=== PATIENT | female | born 1945 | race Caucasian/White ===

== ENCOUNTER 2017-09-02 11:22 | Outpatient (CLI) | payer MEDICARE, OTHER ==
--- NOTE | 2017-09-02 13:05 | XRAY Preliminary Report ---
Exam: XR CHEST 2 VIEW PA/LAT IMPRESSION: Stable chest. No radiographic evidence for pneumonia, CHF or other demonstrated cause for the patient's symptoms. [facility] SITE ID: [id number]
--- NOTE | 2017-09-02 13:07 | XRAY Report ---
EXAM: CHEST RADIOGRAPHY, 2 VIEWS EXAM DATE: 09/02/2017 12:12 PM. CLINICAL HISTORY: 72-year-old female with pneumonia. COMPARISON: AP portable study 11/11/2013. TECHNIQUE: Upright PA and lateral views. FINDINGS: Lungs/Pleura: No focal opacities evident. No pleural effusion. No pneumothorax. Normal volumes. Mediastinum: Heart and mediastinal contours are unremarkable. No pulmonary vascular congestion or tramaine nopathy. Other: Trachea is midline. Osseous structures show no acute process. Mild dextroconvex curve lower th oracic spine with mild levoconvex curve lower thoracic and upper lumbar spine. Right upper quadrant surgical clips consistent with cholecystectomy. IMPRESSION: Stable chest. No radiographic evidence for pneumonia, CHF or other demonstrated cause for the patient's symptoms. [facility] Referring Provider Line: [phone] SITE ID: [id number]
== END 2017-09-02 11:23 | disposition home or self-care (01) ==
LOC: DI 11:22
PROVIDERS: ATTEND Specialist
DX: J18.9 Pneumonia, unspecified organism (principal)
CPT/HCPCS: 71020

== ENCOUNTER 2017-09-03 21:19 | Emergency (ER) | payer MEDICARE, OTHER ==
[2017-09-03] MEDS ORDERED: IPRATROPIUM/ALBUTEROL 3 ML NEB INH STA (21:52)
[2017-09-03] MEDS ORDERED: IPRATROPIUM/ALBUTEROL 3 ML NEB INH ONE (22:08)
[2017-09-03 22:09] LABS: BASOPHILS % (AUTO) 0.7 %; HGB - HEMOGLOBIN 12.9 g/dL (12.0-16.0); MEAN PLATELET VOLUME 7.9 fL (7.9-10.8)
[2017-09-03 22:12] LABS: EOSINOPHILS % (AUTO) 11.3 %; HCT - HEMATOCRIT 38.3 % (37.0-47.0); LYMPHOCYTES % (AUTO) 31.6 %; MEAN CORPUSCULAR HEMOGLOBIN 30.6 pg (27.0-31.0); MEAN CORPUSCULAR HGB CONC 33.7 g/dL (32.0-36.0); MEAN CORPUSCULAR VOLUME 91.1 fL (81.0-99.0); MONOCYTES % (AUTO) 7.8 %; NEUTROPHILS % (AUTO) 48.6 %; RED CELL DISTRIBUTION WIDTH 13.6 % (12.0-15.0); UNCORRECTED WHITE BLOOD COUNT 10.3 x10^3/uL; WHITE BLOOD COUNT 10.3 x10^3/uL (4.8-10.8)
[2017-09-03 22:23] LABS: ALBUMIN/GLOBULIN RATIO 1.4 (1.0-2.2); BILIRUBIN,TOTAL 0.4 mg/dL (0.2-1.0); CALCIUM 9.7 mg/dL (8.5-10.3); CREATININE 0.8 mg/dL (0.4-1.0); POTASSIUM 3.7 mmol/L (3.5-5.0); TOTAL PROTEIN 7.4 g/dL (6.7-8.2)
[2017-09-03 22:39] LABS: BAND NEUTROPHILS % (MANUAL) 1 %; EOSINOPHILS % (MANUAL) 10 %; LYMPHOCYTES % (MANUAL) 41 %; NEUTROPHILS % (MANUAL) 46 %; NP AUTO DIFFERENTIAL? YES; NP MAN DIFFERENTIAL? NO; PLATELET ESTIMATE, MANUAL NORMAL (130-450,000) (NORMAL); PLATELET MORPHOLOGY NORMAL APPEARANCE (NORMAL); TOTAL CELLS COUNTED 100
--- NOTE | 2017-09-03 23:00 | ED Physician Documentation ---
PD HPI URI - Stated complaint Stated Complaint: SOA/COUGH - Chief complaint Chief Complaint: Resp - History obtained from History obtained from: Patient, Family - History of Present Illness Timing - onset: How many weeks ago (4) Timing details: Gradual onset, Intermittant, Waxing and waning Associated symptoms: Sweats, Rhinorrhea, Productive cough. No: Fever, Chills Contributing factors: Sick contact Similar symptoms before: Work up / diagnostics, Treatment Recently seen: Clinic - Additional information Additional information: Patient is a 72 year old female with multiple co-morbidities who is presenting to the emergency department for about a month long history of cough and shortness of breath. patient's family originally all had the same symptoms but patient's symptoms never really resolved. patient states that in the morning she normally is able to cough some things up, and then the cough gets dry throughout the day. Patient states that the cough is keeping her awake. Patient states that she has seen her pmd and did a trial of antibiotics. Patient had a chest x-ray yesterday but did not know the results. she was worried it might be pneumonia. Patient states that it does improve with the nebulizer treaments. Review of Systems Constitutional: reports: Sweats. denies: Fever, Chills Eyes: denies: Decreased vision, Photophobia Ears: denies: Ear pain Nose: reports: Rhinorrhea / runny nose, Congestion Throat: reports: Reviewed and negative Cardiac: denies: Chest pain / pressure, Palpitations, Calf pain Respiratory: reports: Dyspnea, Cough, Wheezing. denies: Hemoptysis GI: denies: Nausea, Vomiting : reports: Reviewed and negative Skin: reports: Reviewed and negative Musculoskeletal: denies: Extremity swelling Neurologic: denies: Generalized weakness, Focal weakness, Syncope, Seizure Immunocompromised: denies: Immunocompromised PD PAST MEDICAL HISTORY - Past Medical History Past Medical History: Yes Cardiovascular: Hypertension, Coronary artery disease, [place] Respiratory: Shortness of breath, Sleep apnea Neuro: Headache/migraine, Other Endocrine/Autoimmune: None GI: GERD [employer]: None Psych: Depression, Anxiety, Panic attacks, Post traumatic stress disorder Musculoskeletal: Osteoarthritis, Fibromyalgia, Osteoporosis, Fatigue, Chronic back pain - Past Surgical History Past Surgical History: Yes General: Cholecystectomy, Appendectomy Ortho: Other /[employer]: Hysterectomy Cardiovascular: Coronary stent HEENT: Tonsil/Adenoidectomy - Present Medications Home Medications: Ambulatory Orders Medication Instructions Recorded Confirmed Aspirin [Aspir 81] 81 mg PO DAILY 11/11/13 09/03/17 Atenolol [Tenormin] 75 mg PO DAILY 11/11/13 09/03/17 Carisoprodol 350 mg PO TID 11/11/13 09/03/17 Potassium Chloride [Klor-Con] 20 meq PO BID 11/11/13 09/03/17 hydroCHLOROthiazide [Hydrodiuril] 12.5 mg PO DAILY 11/11/13 09/03/17 Albuterol 2.5 mg INH Q4H PRN #30 neb 09/03/17 Atorvastatin Calcium 80 mg ORAL DAILY 09/03/17 09/03/17 Citalopram Hydrobromide 10 mg ORAL DAILY 09/03/17 09/03/17 [Citalopram HBr] Codeine Phosphate/Guaifenesin 10 ml PO DAILY #120 ml 09/03/17 [Guaifen-Codeine 100-10 mg/5 ml] Loratadine [Allergy Relief] 10 mg ORAL DAILY 09/03/17 09/03/17 Losartan Potassium 50 mg PO DAILY 09/03/17 09/03/17 Nitroglycerin [Nitrostat] 0.4 mg ORAL .FREQ PRN 09/03/17 09/03/17 - Allergies Allergies/Adverse Reactions: Allergies Allergy/AdvReac Type Severity Reaction Status Date / Time No Known Drug Allergies Allergy Verified 09/03/17 21:52 - Social History Does the pt smoke?: No Smoking Status: Former smoker Does the pt drink ETOH?: No Does the pt have substance abuse?: No - Immunizations Immunizations are current?: Yes - POLST Patient has POLST: No PD ED PE NORMAL - Vitals Vital signs reviewed: Yes - General General: Alert and oriented X 3, Well developed/nourished - HEENT HEENT: Atraumatic, PERRL, Moist mucous membranes, Pharynx benign, Dentition benign - Neck Neck: Supple, no meningeal sign, No JVD - Cardiac Cardiac: RRR, No murmur - Abdomen Abdomen: Soft, Non distended - Derm Derm: Normal color, Warm and dry - Extremities Extremities: No calf tenderness / cord - Neuro Neuro: Alert and oriented X 3, No motor deficit, No sensory deficit, Normal speech PD ED PE EXPANDED - Respiratory Respiratory: Wheezing, Rhonchi, Right upper lobe, Left upper lobe - Derm Derm: Diaphoretic Results - Vitals Vitals: Vital Signs - 24 hr 09/03/17 09/03/17 09/03/17 21:32 22:00 22:57 Temperature 36.2 C L 36.8 C Heart Rate 70 81 73 Respiratory 16 16 15 Rate Blood Pressure 197/91 H 167/89 H O2 Saturation 94 98 Oxygen O2 Source Room air - EKG (time done) 6 Rate: Rate (enter#) (78) Rhythm: NSR [place]: Normal Intervals: Prolonged QT QRS: Normal Ischemia: Normal ST segments Compare to prior EKG: Unchanged from prior EKG - Labs Labs: Laboratory Tests 09/03/17 09/03/17 09/03/17 22:03 22:03 22:03 WBC 10.3 RBC 4.20 Hgb 12.9 Hct 38.3 MCV 91.1 MCH 30.6 MCHC 33.7 RDW 13.6 Plt Count 275 MPV 7.9 Neut # Not Reportable Lymph # Not Reportable [place] # Not Reportable Eos # Not Reportable Baso # Not Reportable Absolute Nucleated RBC Not Reportable Total Counted 100 Band Neuts % (Manual) 1 Abnorm Lymph % (Manual) 0 Nucleated RBC % Not Reportable Neutrophils # (Manual) 4.8 Lymphocytes # (Manual) 4.2 H Monocytes # (Manual) 0.2 Eosinophils # (Manual) 1.0 H Basophils # (Manual) 0.0 Differential Comment MANUAL DIFFERENTIAL Platelet Estimate NORMAL (130-450,000) Platelet Morphology NORMAL APPEARANCE RBC Morph Micro Appear NORMAL APPEARANCE Sodium 137 Potassium 3.7 Chloride 98 L Carbon Dioxide 27 Anion Gap 12.0 BUN 21 H Creatinine 0.8 Estimated GFR (MDRD) 70 L Glucose 107 H Calcium 9.7 Total Bilirubin 0.4 AST 23 ALT 18 Alkaline Phosphatase 89 Troponin I < 0.04 B-Natriuretic Peptide Total Protein 7.4 Albumin 4.3 Globulin 3.1 Albumin/Globulin Ratio 1.4 Lipase 36 Influenza A (Rapid) Influenza B (Rapid) Influenza Types A,B Ag 09/03/17 09/03/17 22:03 22:19 WBC RBC Hgb Hct MCV MCH MCHC RDW Plt Count MPV Neut # Lymph # [place] # Eos # Baso # Absolute Nucleated RBC Total Counted Band Neuts % (Manual) Abnorm Lymph % (Manual) Nucleated RBC % Neutrophils # (Manual) Lymphocytes # (Manual) Monocytes # (Manual) Eosinophils # (Manual) Basophils # (Manual) Differential Comment Platelet Estimate Platelet Morphology RBC Morph Micro Appear Sodium Potassium Chloride Carbon Dioxide Anion Gap BUN Creatinine Estimated GFR (MDRD) Glucose Calcium Total Bilirubin AST ALT Alkaline Phosphatase Troponin I B-Natriuretic Peptide 156 H Total Protein Albumin Globulin Albumin/Globulin Ratio Lipase Influenza A (Rapid) Negative Influenza B (Rapid) Negative Influenza Types A,B Ag - PD MEDICAL DECISION MAKING - ED course Complexity details: reviewed old records, reviewed results, re-evaluated patient , considered differential, d/w patient, d/w family ED course: Patient was seen and examined at bedside. ekg was performed and was normal sinus. IV access was gained and labs were drawn. Patient was treated with 2 duoneb treatments. The x-ray from the previous day was reviewed and showed no acute abnormalities. patient stated that she was feeling much better after the nebulizer treatments. Patient was treated with robitussin. patient's diagnostics were otherwise within normal limits. patient's symptoms were likely secondary to bronchitis. Upon discharge patient was not hypoxic and was feeling better. patient and family were given detailed discharge and follow up instructions. patient was stable for discharge with outpatient follow up. Departure - Departure Disposition: 01 Home, Self Care Clinical Impression: Bronchitis Condition: Good Instructions: ED Bronchitis Asthmatic Follow-Up: JOVAN YANG [Primary Care Provider] - Prescriptions: Albuterol 2.5 mg INH Q4H PRN #30 neb PRN Reason: Wheezing Codeine Phosphate/Guaifenesin [Guaifen-Codeine 100-10 mg/5 ml] 10 ml PO DAILY # 120 ml Comments: Your symptoms today are likely being caused by bronchitis. It is normally viral in nature and can last for weeks or months at a time. You should avoid any triggers and use the inhalers for symptomatic relief. You should continue to work with your doctor for check up, but should return to the emergency department if your symptoms worsen and you are using the inhalers more than every few hours. Discharge Date/Time: 09/03/17 23:23
[2017-09-03 23:04] VITALS: BP 167/89
[2017-09-03] MEDS ORDERED: guaiFENesin/CODEINE 5 ML UDC PO STA (23:21)
[2017-09-03] MEDS ORDERED: guaiFENesin/CODEINE 5 ML UDC ONE (23:28)
== END 2017-09-03 23:23 | disposition home or self-care (01) ==
LOC: ED 21:19
DX: J40 Bronchitis, not specified as acute or chronic (principal); I10 Essential (primary) hypertension; I25.10 Atherosclerotic heart disease of native coronary artery without angina pectoris; I25.2 Old myocardial infarction; Z87.891 Personal history of nicotine dependence; Z79.82 Long term (current) use of aspirin
CPT/HCPCS: 36415; 80053; 83690; 83880; 84484; 85025; 87275; 87276; 93005; 94640; 99283; A9270; J7620

== ENCOUNTER 2017-09-08 06:29 | Outpatient (CLI) | payer MEDICARE, OTHER | END 2017-09-08 06:30 | disposition critical access hospital (66) | LOC: EMS 06:29 | PROVIDERS: ATTEND Surgery | DX: R06.02 Shortness of breath (principal) | CPT/HCPCS: A0425; A0427 ==

== ENCOUNTER 2017-09-08 06:44 | Emergency (ER) | payer MEDICARE, OTHER ==
[2017-09-08] MEDS ORDERED: SODIUM CHLORIDE 0.9% 1,000 ML IV ONE (07:31)
[2017-09-08] MEDS ORDERED: MAGNESIUM SULFATE 2 GRAM 2 GM/50 ML BAG IV ONE ×2 (07:31→08:09)
--- NOTE | 2017-09-08 07:35 | ED Physician Documentation ---
PD HPI DYSPNEA - Stated complaint Stated Complaint: SOA, COPD - Chief complaint Chief Complaint: Resp - History obtained from History obtained from: Patient, Family, EMS - History of Present Illness Timing - onset: How many months ago (3) Timing - onset during: Rest Timing - duration: Months (3) Timing - details: Gradual onset, Still present Inciting event(s): URI Improved by: Inhaler/neb Worsened by: Laying flat, Coughing, Allergens, Smoke Associated symptoms: Cough, Wheezing, Bilateral edema. No: Fever Similar symptoms before: Diagnosis (bronchitis) Recently seen: Emergency Dept (Seen 5 days ago with bronchitis) - Additional information Additional information: 72-year-old female has begun to have some problems with a cough earlier this year at the end of the summer and the cough is never let up. Over the past 2 weeks her cough is worsened she has been seen by her primary care doctor is tried a trial of antibiotic and has been into the emergency department and had her nebulizer regimen optimized. She has had a chest x-ray done 6 days ago. She has not had fever with this ill illness she has had a cough and feels that she has something to cough up from the right side.She has noticed some swelling in her ankles bilaterally as well.She has not been on a course of steroid with this she does not have a prior diagnosis of COPD. She does state that she picked up smoking about 2 years ago and quit about 3 weeks ago. She was smoking about a pack every 3 days. She has not had to use an inhaler prior to about 1 year ago when she developed a similar illness over the winter last year. Review of Systems Constitutional: denies: Fever, Chills Eyes: denies: Decreased vision Ears: reports: Loss of hearing Nose: reports: Rhinorrhea / runny nose, Congestion Throat: denies: Sore throat Cardiac: reports: Pedal edema. 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 Psych: Depression, Anxiety, Panic attacks, Post traumatic stress disorder Musculoskeletal: Osteoarthritis, Fibromyalgia, Osteoporosis, Fatigue, Chronic back pain - Past Surgical History Past Surgical History: Yes General: Cholecystectomy, Appendectomy 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 Cardiovascular: Coronary stent HEENT: Tonsil/Adenoidectomy - Present Medications Home Medications: Ambulatory Orders Medication Instructions Recorded Confirmed Aspirin [Aspir 81] 81 mg PO DAILY 11/11/13 09/08/17 Atenolol [Tenormin] 75 mg PO DAILY 11/11/13 09/08/17 Albuterol 2.5 mg INH Q4H PRN #30 neb 09/03/17 09/08/17 Atorvastatin Calcium 80 mg ORAL DAILY 09/03/17 09/08/17 Citalopram Hydrobromide 10 mg ORAL DAILY 09/03/17 09/08/17 [Citalopram HBr] Loratadine [Allergy Relief] 10 mg ORAL DAILY 09/03/17 09/08/17 Losartan Potassium 50 mg PO DAILY 09/03/17 09/08/17 Nitroglycerin [Nitrostat] 0.4 mg ORAL .FREQ PRN 09/03/17 09/08/17 hydroCHLOROthiazide 25 mg PO DAILY 09/08/17 09/08/17 [Hydrochlorothiazide] - Allergies Allergies/Adverse Reactions: Allergies Allergy/AdvReac Type Severity Reaction Status Date / Time No Known Drug Allergies Allergy Verified 09/03/17 21:52 - Social History Does the pt smoke?: No Smoking Status: Former smoker Does the pt drink ETOH?: No Does the pt have substance abuse?: No - Immunizations Immunizations are current?: Yes - POLST Patient has POLST: No PD ED PE NORMAL - Vitals Vital signs reviewed: Yes (Tachypneic tachycardic and hypertensive) - General General: Well developed/nourished, Other (72-year-old female doing pursed lip breathing is able to talk in multiword sentences.) - HEENT HEENT: Atraumatic, PERRL, EOMI, Ears normal, Pharynx benign, Other (Dry mucous membranes) - Neck Neck: Supple, no meningeal sign, No bony TTP - Cardiac Cardiac: No murmur, Other (Tachycardic) - Respiratory Respiratory: Other (Tachypneic at rest with rhonchi in the right base and clear lung sounds on the left.) - Abdomen Abdomen: Soft, Non tender - Back Back: No CVA TTP, No spinal TTP - Derm Derm: Normal color, Warm and dry, No rash - Extremities Extremities: No deformity, Other (There is trace edema bilaterally) - Neuro Neuro: No motor deficit, No sensory deficit Eye Opening: Spontaneous Motor: Obeys Commands Verbal: Oriented GCS Score: 15 - Psych Psych: Normal mood, Normal affect Results - Vitals Vitals: Vital Signs - 24 hr 09/08/17 09/08/17 09/08/17 06:49 08:13 08:14 Temperature 36.5 C Heart Rate 114 H 99 99 Respiratory 22 22 22 Rate Blood Pressure 156/87 H 134/85 H O2 Saturation 98 93 09/08/17 09/08/17 09:31 10:32 Temperature Heart Rate 105 H 106 H Respiratory 16 22 Rate Blood Pressure 130/81 H O2 Saturation 94 Oxygen O2 Source Room air - EKG (time done) 0758 Rate: Rate (enter#) (106) Rhythm: Sinus tachycardia, LAE QRS: LVH Compare to prior EKG: Changed from prior EKG ([facility] 09-03-17 rate has increased. ) Computer interpretation: Agree with computer - Labs Labs: Laboratory Tests 09/08/17 09/08/17 09/08/17 07:47 07:47 07:47 WBC 11.5 H RBC 4.43 Hgb 13.6 Hct 40.2 MCV 90.6 MCH 30.8 MCHC 33.9 RDW 13.5 Plt Count 211 MPV 8.2 Neut # 9.3 H Lymph # 1.3 L [place] # 0.3 Eos # 0.6 Baso # 0.1 Absolute Nucleated RBC 0.00 Nucleated RBC % 0.0 Sodium 135 Potassium 3.9 Chloride 97 L Carbon Dioxide 24 Anion Gap 14.0 H BUN 18 Creatinine 0.7 Estimated GFR (MDRD) 82 L Glucose 148 H Calcium 9.5 Total Bilirubin 0.4 AST 36 ALT 32 Alkaline Phosphatase 102 Troponin I 0.25 B-Natriuretic Peptide Total Protein 7.6 Albumin 4.2 Globulin 3.4 Albumin/Globulin Ratio 1.2 Lipase 24 09/08/17 09/08/17 07:47 09:29 WBC RBC Hgb Hct MCV MCH MCHC RDW Plt Count MPV Neut # Lymph # [place] # Eos # Baso # Absolute Nucleated RBC Nucleated RBC % Sodium Potassium Chloride Carbon Dioxide Anion Gap BUN Creatinine Estimated GFR (MDRD) Glucose Calcium Total Bilirubin AST ALT Alkaline Phosphatase Troponin I 0.37 B-Natriuretic Peptide 104 H Total Protein Albumin Globulin Albumin/Globulin Ratio Lipase - Rads (name of study) 2 view chest Radiology: Prelim report reviewed (Impression: No radiographic apparent acute abnormality in the chest. No significant change from prior.), EMP read indepedently, See rad report Procedures - IVC sono (time) 073g0 Bedside IVC sono: IVC measures (cm) (0.98), IVC collapsed c insp (cm) (complete) , Dehydration PD MEDICAL DECISION MAKING - ED course Complexity details: reviewed old records, reviewed results, re-evaluated patient , considered differential, d/w patient, d/w family ED course: 72-year-old female has developed COPD over the last 2 years and now has a 3 month long cough that has not resolved. She has been diagnosed with bronchitis her cough is not resolved and she has been able to control her breathing until this morning. She was unable to catch her breath and called the ambulance. Medics were able to give her a DuoNeb treatment with some improvement and found her to be hypoxic at her home. She was also given Solu-Medrol 125 mg intravenously. She does have some lower extremity edema But her IVC indicates volume depletion. She is given IV saline and magnesium and a chest x-ray is obtained. She does have rhonchi in the right base. The chest x-ray is without consolidation and the BNP is nearly normal. The trop is off of baseline and this increases over time. Dr. Campbell at [facility] is consulted in the case and will accept the patient in transfer and recommends clopidigrel and heparin for transport. Departure - Departure Disposition: 02 Transfer Acute Care Hosp Clinical Impression: Cardiac asthma Dyspnea Qualifiers: Dyspnea type: dyspnea on exertion Qualified Code(s): R06.09 - Other forms of dyspnea
[2017-09-08 07:58] LABS: BASOPHILS # (AUTO) 0.1 10^3/uL (0.0-0.1); BASOPHILS % (AUTO) 0.5 %; EOSINOPHILS # (AUTO) 0.6 10^3/uL (0.0-0.7); EOSINOPHILS % (AUTO) 5.4 %; HCT - HEMATOCRIT 40.2 % (37.0-47.0); HGB - HEMOGLOBIN 13.6 g/dL (12.0-16.0); LYMPHOCYTES # (AUTO) 1.3 10^3/uL (1.5-3.5); LYMPHOCYTES % (AUTO) 11.2 %; MEAN CORPUSCULAR HEMOGLOBIN 30.8 pg (27.0-31.0); MEAN CORPUSCULAR HGB CONC 33.9 g/dL (32.0-36.0); MEAN CORPUSCULAR VOLUME 90.6 fL (81.0-99.0); MEAN PLATELET VOLUME 8.2 fL (7.9-10.8); MONOCYTES # (AUTO) 0.3 10^3/uL (0.0-1.0); MONOCYTES % (AUTO) 2.4 %; NEUTROPHILS # (AUTO) 9.3 10^3/uL (1.5-6.6); NEUTROPHILS % (AUTO) 80.5 %; RED BLOOD COUNT 4.43 10^6/uL (4.20-5.40); RED CELL DISTRIBUTION WIDTH 13.5 % (12.0-15.0); UNCORRECTED WHITE BLOOD COUNT 11.5 x10^3/uL; WHITE BLOOD COUNT 11.5 x10^3/uL (4.8-10.8)
[2017-09-08] MEDS ORDERED: IPRATROPIUM/ALBUTEROL 3 ML NEB INH STA ×2 (08:01→09:23)
[2017-09-08 08:12] LABS: ALBUMIN/GLOBULIN RATIO 1.2 (1.0-2.2); BILIRUBIN,TOTAL 0.4 mg/dL (0.2-1.0); CALCIUM 9.5 mg/dL (8.5-10.3); CREATININE 0.7 mg/dL (0.4-1.0); POTASSIUM 3.9 mmol/L (3.5-5.0); TOTAL PROTEIN 7.6 g/dL (6.7-8.2)
[2017-09-08] MEDS ORDERED: IPRATROPIUM/ALBUTEROL 3 ML NEB INH ONE (08:13)
--- NOTE | 2017-09-08 08:13 | XRAY Preliminary Report ---
Exam: XR CHEST 2 VIEW PA/LAT IMPRESSION: No radiographically apparent acute abnormality in the chest. No significant change from p rior. [facility] SITE ID: [id number]
--- NOTE | 2017-09-08 08:16 | XRAY Report ---
EXAM: CHEST RADIOGRAPHY EXAM DATE: 09/08/2017 07:58 AM. CLINICAL HISTORY: Cough, soa, rhonchi in the right base. COMPARISON: 09/02/2017. TECHNIQUE: 2 views. FINDINGS: Lungs/Pleura: No focal consolidation. No pneumothorax or pleural effusion. Mild hyperinflation. Mediastinum: Heart and mediastinal contours are unremarkable. Other: Presumed cholecystectomy clips. IMPRESSION: No radiographically apparent acute abnormality in the chest. No significant change from p michaelrAmy ROBINS Referring Provider Line: [phone] SITE ID: [id number]
[2017-09-08] MEDS ORDERED: LORazepam 2 MG/ML VIAL IVP PRN (09:27)
[2017-09-08] MEDS ORDERED: LORazepam 2 MG/ML VIAL ONE (09:35)
[2017-09-08] MEDS ORDERED: HEPARIN 5,000 UNIT/ML VIAL IVP ONE (10:56)
[2017-09-08] MEDS ORDERED: CLOPIDOGREL 300 MG TABLET PO STA (10:56)
[2017-09-08] MEDS ORDERED: HEPARIN 25,000 UNITS/500 ML NS 25,000 UNIT/500 ML BAG IV STA (11:02)
[2017-09-08] MEDS ORDERED: LORazepam 2 MG/ML VIAL IVP STA (12:11)
[2017-09-08 12:35] VITALS: BP 127/71
== END 2017-09-08 12:45 | disposition short-term general hospital (02) ==
LOC: EDBD → EDUNIT# → ED 06:44
DX: I11.0 Hypertensive heart disease with heart failure (principal); I50.1 Left ventricular failure, unspecified; R06.09 Other forms of dyspnea; J44.9 Chronic obstructive pulmonary disease, unspecified; I25.10 Atherosclerotic heart disease of native coronary artery without angina pectoris; I25.2 Old myocardial infarction; K21.9 Gastro-esophageal reflux disease without esophagitis; M19.90 Unspecified osteoarthritis, unspecified site; M79.7 Fibromyalgia; Z79.82 Long term (current) use of aspirin; Z87.891 Personal history of nicotine dependence
CPT/HCPCS: 36415; 71020; 80053; 83690; 83880; 84484; 85025; 85379; 87040; 93005; 94640; 96365; 96366; 96367; 96375; 96376; 99284; 99285; A9270; J2060; J7620

== ENCOUNTER 2017-09-08 12:45 | Outpatient (CLI) | payer MEDICARE, OTHER | END 2017-09-08 12:46 | disposition short-term general hospital (02) | LOC: EMS 12:45 | PROVIDERS: ATTEND Surgery | DX: R06.02 Shortness of breath (principal) | CPT/HCPCS: A0425; A0426 ==

== ENCOUNTER 2018-10-15 14:26 | Outpatient (CLI) | payer MEDICARE, OTHER ==
--- NOTE | 2018-10-16 09:27 | DEXA Report ---
Reason: POST MENOPAUSAL Procedure Date: 10/15/2018 Accession Number: [id number] / [id number] Procedure: DEX - Dexa Spine and/or Hip CPT Code: FULL RESULT: EXAM: Dexa Spine and/or Hip DATE: 10/15/2018 3:17 PM CLINICAL HISTORY: POST MENOPAUSAL TECHNIQUE: Dual energy x-ray absorptiometry (DXA) was performed on a ProtoExchange System. Regions measured are the AP Spine, femoral neck, and if needed forearm. COMPARISON: None. In accordance with the International Society for Clinical Densitometry (ISCD) guidelines, data from previous exams may be reanalyzed using current recommendations and techniques. This is done to allow a more accurate basis for comparison with the current study. FINDINGS: The data for the lumbar spine is as follows: BMD (g/cm/cm) T-SCORE Z-SCORE REGION L1 0.968 -1.3 -0.5 L2 1.100 -0.8 0.0 L3 1.316 1.0 1.8 L4 1.237 0.3 1.1 TOTAL 1.164 -0.1 0.7 NOTE: All evaluable vertebrae are used for classification The data for the hip is as follows: BMD (g/cm/cm) T-SCORE Z-SCORE REGION Neck 0.799 -1.7 -0.4 TOTAL 0.964 -0.3 0.7 NOTE: The femoral neck or total proximal femur, whichever is lowest, is used for classification. IMPRESSION: THE WHO CLASSIFICATION BASED ON THE INTERNATIONAL REFERENCE STANDARD IS OSTEOPENIA. THE FRACTURE RISK IS INCREASED. RECOMMENDATION: Patients with diagnosis of osteoporosis or osteopenia should have regular bone mineral density assessment. For those eligible for Medicare, routine testing is allowed once every 2 years. Testing frequency can be increased for patients who have rapidly progressing disease or for those who are receiving medical therapy to restore bone mass. COMMENT: World Health Organization (WHO) definitions for osteoporosis and osteopenia: NORMAL BMD: T-score at -1.0 or higher, fracture risk is low OSTEOPENIA BMD: T-score between -1.0 and -2.5, fracture risk is increased. OSTEOPOROSIS BMD: T-score at -2.5 or lower, fracture risk is high. National Osteoporosis Foundation recommends: 1. Obtain adequate dietary calcium (at least 1200 mg per day) and vitamin D (400-800 international units per day). 2. Participate, as appropriate, in regular weightbearing and muscle-strengthening exercise. 3. Avoid tobacco use and reduce alcohol and caffeine intake. 4. For more detailed information see the website at www.NOF.org.
== END 2018-10-15 14:27 | disposition home or self-care (01) ==
LOC: DI 14:26
PROVIDERS: ATTEND Family Medicine
DX: Z13.820 Encounter for screening for osteoporosis (principal); M85.88 Other specified disorders of bone density and structure, other site; N95.8 Other specified menopausal and perimenopausal disorders
CPT/HCPCS: 77080

== ENCOUNTER 2018-10-15 14:30 | Outpatient (CLI) | payer MEDICARE, OTHER ==
--- NOTE | 2018-10-16 08:49 | Mammography Report ---
Reason: SCREENING FOR BREAST CANCER Procedure Date: 10/15/2018 Accession Number: [id number] / [id number] Procedure: ELKE - Screening Mammo w/Akhil CPT Code: FULL RESULT: EXAM: Screening Mammo w/Akhil DATE: 10/15/2018 3:33 PM CLINICAL HISTORY: Family history of breast cancer in the daughter at the age of 45 and a male relative at the age of 7. TECHNIQUE: Bilateral CC and MLO views were obtained. COMPARISON: 11/28/2013. FINDINGS: The breasts demonstrate scattered fibroglandular densities bilaterally. The bilateral MLO views are technically inadequate with insufficient visualization of the inferior mammary fold. Both CC views are also technically inadequate with incomplete visualization of the axillary tail of breast tissue. No suspicious masses, clustered microcalcifications, or regions of architectural distortion are identified. IMPRESSION: Incomplete examination RECOMMENDATION: Technical repeat of both MLO and CC views as described above. Visualization of the axillary tails and CC view may be accomplished by lateral exaggeration. BIRADS CATEGORY 0: Incomplete examination STANDARD QUALIFYING STATEMENTS: 1. This examination was not reviewed with the aid of Computer-Aided Detection (CAD). 2. A negative or benign imaging report should not preclude biopsy if clinically suspicious findings are present. 3. Dense breasts may obscure an underlying neoplasm. 4. This examination was reviewed with the aid of 3D breast imaging (tomosynthesis).
== END 2018-10-15 14:31 | disposition home or self-care (01) ==
LOC: DI 14:30
PROVIDERS: ATTEND Family Medicine
DX: Z12.31 Encounter for screening mammogram for malignant neoplasm of breast (principal); R92.2 Inconclusive mammogram; Z80.3 Family history of malignant neoplasm of breast
CPT/HCPCS: 77063; 77067

== ENCOUNTER 2019-01-17 12:33 | Outpatient (CLI) | payer MEDICARE, OTHER ==
--- NOTE | 2019-01-17 15:00 | Mammography Report ---
Reason: TECH REPEAT - NO CHARGE - ROUTINE MAMMO Procedure Date: 01/17/2019 Accession Number: [id number] / [id number] Procedure: ELKE - No Charge Procedure CPT Code: FULL RESULT: EXAM: No Charge Procedure DATE: 01/17/2019 1:43 PM CLINICAL HISTORY: Technical repeat of screening mammogram. TECHNIQUE: (B) - Bilateral CC and MLO views were obtained. Bilateral laterally exaggerated cc views are obtained. COMPARISON: 10/15/2018 and 11/28/2013. PARENCHYMAL PATTERN: (A) - The breast(s) demonstrate(s) scattered fibroglandular densities. FINDINGS: In the left breast, seen on 3-D image 28 of the cc projection with the left MLO projection correlate likely on image 30 of the 10/15/2018 3-D images is an ill-defined partially obscured isodense nodule with surrounding architectural distortion approximately 7.6 cm from the nipple in the central breast which measures approximately 1 cm and requires additional evaluation by spot mammographic evaluation and possibly ultrasound. There are no suspicious masses, calcifications, or areas of distortion in the right breast. IMPRESSION: Incomplete examination. BI-RADS category 0. RECOMMENDATION: ([facility]) - Additional views using both Mammography and Ultrasound recommended. Additional spot mammographic evaluation and ultrasound of the left breast. BI-RADS CATEGORY: (0) - Incomplete Examination - need additional evaluation. STANDARD QUALIFYING STATEMENTS: 1. This examination was not reviewed with the aid of Computer-Aided Detection (CAD). 2. A negative or benign imaging report should not preclude biopsy if clinically suspicious findings are present. 3. Dense breasts may obscure an underlying neoplasm. 4. This examination was reviewed with the aid of 3D breast imaging (tomosynthesis).
== END 2019-01-17 12:34 | disposition home or self-care (01) ==
LOC: DI 12:33
PROVIDERS: ATTEND Family Medicine
DX: Z12.31 Encounter for screening mammogram for malignant neoplasm of breast (principal)
CPT/HCPCS: 77063; 77067

== ENCOUNTER 2019-01-19 17:26 | Outpatient (CLI) | payer MEDICARE, OTHER | END 2019-01-19 17:27 | disposition critical access hospital (66) | LOC: EMS 17:26 | PROVIDERS: ATTEND Surgery | DX: R10.13 Epigastric pain (principal); R68.83 Chills (without fever); R61 Generalized hyperhidrosis; R23.1 Pallor; R11.2 Nausea with vomiting, unspecified; R19.7 Diarrhea, unspecified | CPT/HCPCS: A0425; A0427 ==

== ENCOUNTER 2019-01-19 17:43 | Emergency (ER) | payer MEDICARE, OTHER ==
--- NOTE | 2019-01-19 17:55 | ED Physician Documentation ---
PD HPI ABD PAIN - Stated complaint Stated Complaint: ABD PX - Chief complaint Chief Complaint: Abd Pain - History obtained from History obtained from: Patient, EMS - History of Present Illness Timing - onset: Today (This is a 74-year-old woman with history of cholecystectomy, appendectomy and hysterectomy who also has irritable bowel syndrome as well as known vascular disease manifested by coronary disease with 3 stents. She also has a history of valvular heart disease, I presume aortic stenosis after examination and her description although she is not familiar with the specific term. It is being watched. She felt kind of off this morning and then 4 hours ago developed crampy intermittent abdominal pain associated with nausea and 3 episodes of vomiting. She notes initially constipation followed by gritty loose stool after this. Pain is basically gone at this juncture and she declines pain medication. She received Zofran in route and her nausea is better as well.) Review of Systems Ten Systems: 10 systems reviewed and negative Constitutional: denies: Fever, Chills Cardiac: denies: Chest pain / pressure, Palpitations Respiratory: reports: Dyspnea (chronic, unchanged.). denies: Cough GI: reports: Abdominal Pain, Nausea, Vomiting, Constipation, Diarrhea. denies: Abdominal Swelling, Hematemesis, Bloody / black stool PD PAST MEDICAL HISTORY - Past Medical History Cardiovascular: Hypertension, Coronary artery disease, [place] Respiratory: Shortness of breath, Sleep apnea Endocrine/Autoimmune: None GI: GERD APPLICATION CONSULTANT: None Psych: Depression, Anxiety, Panic attacks, Post traumatic stress disorder Musculoskeletal: Osteoarthritis, Fibromyalgia, Osteoporosis, Fatigue, Chronic back pain - Past Surgical History Past Surgical History: Yes General: Cholecystectomy, Appendectomy Ortho: Other /APPLICATION CONSULTANT: Hysterectomy Cardiovascular: Coronary stent HEENT: Tonsil/Adenoidectomy - Present Medications Home Medications: Ambulatory Orders Medication Instructions Recorded Confirmed Aspirin [Aspir 81] 81 mg PO DAILY 11/11/13 01/19/19 Atenolol [Tenormin] 75 mg PO DAILY 11/11/13 01/19/19 Albuterol 2.5 mg INH Q4H PRN #30 neb 09/03/17 01/19/19 Atorvastatin Calcium 80 mg ORAL DAILY 09/03/17 01/19/19 Citalopram Hydrobromide 10 mg ORAL DAILY 09/03/17 01/19/19 [Citalopram HBr] Loratadine [Allergy Relief] 10 mg ORAL DAILY 09/03/17 01/19/19 Losartan Potassium 50 mg PO DAILY 09/03/17 01/19/19 Nitroglycerin [Nitrostat] 0.4 mg ORAL .FREQ PRN 09/03/17 01/19/19 Benzonatate 100 mg PO TID 01/19/19 01/19/19 Budesonide 1 mg IH PRN PRN 01/19/19 01/19/19 Calcium Carbonate [Antacid] 200 mg PO DAILY 01/19/19 01/19/19 Ciprofloxacin [Cipro] 250 mg PO Q12H #6 tablet 01/19/19 Furosemide 20 mg PO BID 01/19/19 01/19/19 Guaifenesin [Mucinex] 600 mg PO PRN PRN 01/19/19 01/19/19 amLODIPine [Norvasc] 5 mcg NEB RTDAILY 01/19/19 01/19/19 - Allergies Allergies/Adverse Reactions: Allergies Allergy/AdvReac Type Severity Reaction Status Date / Time No Known Drug Allergies Allergy Verified 01/19/19 17:51 - Social History Does the pt smoke?: No Smoking Status: Former smoker Does the pt drink ETOH?: No Does the pt have substance abuse?: No - Family History Family history: reports: Non contributory - Immunizations Immunizations are current?: Yes - POLST Patient has POLST: No PD ED PE NORMAL - Vitals Vital signs reviewed: Yes - General General: Alert and oriented X 3, No acute distress - HEENT HEENT: PERRL, EOMI - Neck Neck: Supple, no meningeal sign, No bony TTP - Cardiac Cardiac: RRR, Other (3 out of 6 holosystolic murmur heard best at the left lower sternal border) - Abdomen Abdomen: Other (Slightly diminished bowel tones but soft and nontender) - Back Back: No CVA TTP, No spinal TTP - Derm Derm: Normal color, Warm and dry - Extremities Extremities: No edema, No calf tenderness / cord - Neuro Neuro: Alert and oriented X 3, Normal speech Results - Vitals Vitals: Vital Signs - 24 hr 01/19/19 01/19/19 01/19/19 17:46 18:14 19:50 Temperature 36.0 C L Heart Rate 117 H 70 70 Respiratory 18 18 18 Rate Blood Pressure 122/63 123/65 119/66 O2 Saturation 100 95 96 Oxygen O2 Source Room air - Labs Labs: Laboratory Tests 01/19/19 01/19/19 01/19/19 17:50 18:10 18:10 WBC 13.5 H RBC 4.09 L Hgb 12.1 Hct 37.4 MCV 91.2 MCH 29.7 MCHC 32.5 RDW 13.4 Plt Count 231 MPV 8.3 Neut # (Auto) 11.6 H Lymph # (Auto) 1.1 L Howell # (Auto) 0.6 Eos # (Auto) 0.1 Baso # (Auto) 0.0 Absolute Nucleated RBC 0.00 Nucleated RBC % 0.0 Sodium 133 L Potassium 3.4 L Chloride 100 L Carbon Dioxide 23 Anion Gap 10.0 BUN 12 Creatinine 0.7 Estimated GFR (MDRD) 82 L Glucose 140 H Lactic Acid 1.9 Calcium 8.3 L Total Bilirubin 0.6 AST 22 ALT 21 Alkaline Phosphatase 97 Total Protein 6.7 Albumin 3.6 Globulin 3.1 Albumin/Globulin Ratio 1.2 Lipase 22 Urine Color Urine Clarity Urine pH Ur Specific [place] Urine Protein Urine Glucose (UA) Urine Ketones Urine Occult Blood Urine Nitrite Urine Bilirubin Urine Urobilinogen Ur Leukocyte Esterase Urine RBC Urine WBC Ur Squamous Epith Cells Urine Bacteria Urine Starch Ur Microscopic Review Urine Culture Comments 01/19/19 19:15 WBC RBC Hgb Hct MCV MCH MCHC RDW Plt Count MPV Neut # (Auto) Lymph # (Auto) Howell # (Auto) Eos # (Auto) Baso # (Auto) Absolute Nucleated RBC Nucleated RBC % Sodium Potassium Chloride Carbon Dioxide Anion Gap BUN Creatinine Estimated GFR (MDRD) Glucose Lactic Acid Calcium Total Bilirubin AST ALT Alkaline Phosphatase Total Protein Albumin Globulin Albumin/Globulin Ratio Lipase Urine Color YELLOW Urine Clarity HAZY Urine pH 6.0 Ur Specific [place] <=1.005 Urine Protein NEGATIVE Urine Glucose (UA) NEGATIVE Urine Ketones NEGATIVE Urine Occult Blood NEGATIVE Urine Nitrite NEGATIVE Urine Bilirubin NEGATIVE Urine Urobilinogen 0.2 (NORMAL) Ur Leukocyte Esterase TRACE H Urine RBC 0-5 Urine WBC 6-10 H Ur Squamous Epith Cells FEW Squamous Urine Bacteria Many H Urine Starch PRESENT Ur Microscopic Review INDICATED Urine Culture Comments INDICATED - Rads (name of study) CT A/P Angio Radiology: EMP read contemporaneously (Small hiatal hernia, some diverticula, vascular disease including a calcified splenic artery aneurysm, multiple areas of intra-abdominal stenoses including the celiac and right renal artery both about 50%.) PD MEDICAL DECISION MAKING - ED course ED course: This is a 74-year-old woman with vascular disease and irritable bowel syndrome who presents with abdominal cramping but is basically pain-free on arrival. Given advanced age and vascular status work-up was done with results as shown. She has a mild UTI this probably basically asymptomatic but treated with Cipro, and multiple areas of intra-abdominal vascular stenosis, none of which are occlusive. She is pain-free here and her lactate is reassuring. She is given a copy of her CAT scan and will follow up with the vascular surgeon. Departure - Departure Disposition: Home, Self Care Clinical Impression: Celiac artery stenosis, Renal artery stenosis Abdominal pain Qualifiers: Abdominal location: generalized Qualified Code(s): R10.84 - Generalized abdominal pain UTI (urinary tract infection) Qualifiers: Urinary tract infection type: acute cystitis Hematuria presence: without hematuria Qualified Code(s): N30.00 - Acute cystitis without hematuria Condition: Good Record reviewed to determine appropriate education?: Yes Instructions: ED Abdominal Pain Unkn Cause Prescriptions: Ciprofloxacin [Cipro] 250 mg PO Q12H #6 tablet Comments: As discussed you, you have multiple areas of intra-abdominal arterial stenosis. None of them are completely occluded but it would be worthwhile to follow-up with a vascular surgeon, several are available in [place] such as Drs. Olvera, Katey or Rolly. The phone number there is [phone], call Monday for an appointment. When you go to that appointment take the copy of the CAT scan on CD with you. Return immediately for recurrence of abdominal pain. You came to the emergency department tonight after messaging your daughter on [employer]. This is not an appropriate or safe way to contact emergency services. I would recommend either pursuing something like a lifeline or a personal cellular phone such that you can contact 911 in a more controlled manner.
[2019-01-19 18:11] LABS: BASOPHILS % (AUTO) 0.2 %; EOSINOPHILS # (AUTO) 0.1 10^3/uL (0.0-0.7); EOSINOPHILS % (AUTO) 0.7 %; HGB - HEMOGLOBIN 12.1 g/dL (12.0-16.0); LYMPHOCYTES # (AUTO) 1.1 10^3/uL (1.5-3.5); LYMPHOCYTES % (AUTO) 8.4 %; MEAN CORPUSCULAR HEMOGLOBIN 29.7 pg (27.0-31.0); MEAN CORPUSCULAR HGB CONC 32.5 g/dL (32.0-36.0); MEAN CORPUSCULAR VOLUME 91.2 fL (81.0-99.0); MEAN PLATELET VOLUME 8.3 fL (7.9-10.8); MONOCYTES # (AUTO) 0.6 10^3/uL (0.0-1.0); MONOCYTES % (AUTO) 4.8 %; NEUTROPHILS # (AUTO) 11.6 10^3/uL (1.5-6.6); NEUTROPHILS % (AUTO) 85.9 %; PLT - PLATELET COUNT 231 10^3/uL (130-450); RED BLOOD COUNT 4.09 10^6/uL (4.20-5.40); RED CELL DISTRIBUTION WIDTH 13.4 % (12.0-15.0); WHITE BLOOD COUNT 13.5 x10^3/uL (4.8-10.8)
[2019-01-19 18:23] LABS: ALBUMIN 3.6 g/dL (3.2-5.5); ALBUMIN/GLOBULIN RATIO 1.2 (1.0-2.2); BILIRUBIN,TOTAL 0.6 mg/dL (0.2-1.0); CALCIUM 8.3 mg/dL (8.5-10.3); CREATININE 0.7 mg/dL (0.4-1.0); TOTAL PROTEIN 6.7 g/dL (6.7-8.2)
[2019-01-19] MEDS ORDERED: IOVERSOL 320 100 ML VIAL IVP ONE ×2 (18:36→18:58)
[2019-01-19 19:25] LABS: BILIRUBIN,URINE NEGATIVE (NEGATIVE); GLUCOSE, URINE (UA) NEGATIVE (NEGATIVE); KETONES,URINE (UA) NEGATIVE (NEGATIVE); LEUKOCYTE ESTERASE, URINE TRACE (NEGATIVE); NITRITE,URINE NEGATIVE (NEGATIVE); OCCULT BLOOD,URINE NEGATIVE (NEGATIVE); PROTEIN,URINE NEGATIVE (NEGATIVE); UROBILINOGEN,URINE 0.2 (NORMAL) E.U./dL (NORMAL)
[2019-01-19 19:28] LABS: CLARITY,URINE HAZY (CLEAR)
--- NOTE | 2019-01-19 19:42 | CT Report ---
Reason: IV only, central abd cramping Procedure Date: 01/19/2019 Accession Number: [id number] / [id number] Procedure: CT - ANGIO ABDOMEN/PELVIS W CPT Code: FULL RESULT: EXAM: CT ANGIOGRAM ABDOMEN AND PELVIS WITH CONTRAST EXAM DATE: 01/19/2019 07:00 PM. CLINICAL HISTORY: Central abdomen cramping. COMPARISONS: ABD/PEL 04/17/2007 3:00 PM. TECHNIQUE: Routine helical CT angiogram imaging was performed through the abdomen and pelvis in the arterial phase. IV contrast: Optiray-320 100 mL. Enteric contrast: No. Reconstructions: Coronal, sagittal, and 3D MIP reconstructions. In accordance with CT protocol optimization, one or more of the following dose reduction techniques were utilized for this exam: automated exposure control, adjustment of mA and/or KV based on patient size, or use of iterative reconstructive technique. FINDINGS: Vasculature: No abdominal aortic aneurysm or dissection. The superior and inferior mesenteric arteries are patent. Moderate calcified plaque narrowing the origin of the celiac artery appears to be hemodynamically significant at greater than 50%. The bilateral iliac arteries appear unremarkable. Patent left renal artery. Calcified plaque which appears to be causing near 50% hemodynamically significant stenosis of the origin of the right renal artery. Lung bases: No acute findings. Small hiatal hernia. Coronary artery calcification. Liver: No focal liver lesions are seen. Status post cholecystectomy. The common duct measures 1.3 cm, moderately dilated, increased compared to the prior. Pancreas: Unremarkable. Spleen: Unremarkable. Heavily calcified splenic artery aneurysm, increase in size and calcification, measures 9 mm. Adrenals: Unremarkable. Kidneys: Right lateral lower exophytic renal cyst measuring 1.6 cm. No hydronephrosis. Bowel: Small hiatal hernia. No dilated bowel loops are seen. A few sigmoid diverticula. The colon is diffusely decompressed which limits exam where colonic wall thickening as seen with colitis is not excluded. Correlate clinically. No acute small bowel findings are seen. No free fluid or free air. Pelvis: There appears to be mild bladder prolapse. The remaining pelvic organs appear unremarkable. Bones: No acute bone findings. Mild anterolisthesis of L5 and S1 most likely degenerative. IMPRESSION: 1. Small hiatal hernia. No dilated bowel loops are seen. A few sigmoid diverticula. The colon is diffusely decompressed which limits exam where colonic wall thickening as seen with colitis is not excluded. Correlate clinically. No acute small bowel findings are seen. No free fluid or free air. 2. Heavily calcified splenic artery aneurysm, increase in size calcification, measures 9 mm. 3. Status post cholecystectomy. The common duct measures 1.3 cm, moderately dilated, increased compared to the prior. 4. There appears to be mild bladder prolapse. 5. No abdominal aortic aneurysm or dissection. The superior and inferior mesenteric arteries are patent. Moderate calcific plaque narrowing the origin of the celiac artery appears to be hemodynamically significant at greater than 50%. The bilateral iliac arteries appear unremarkable. Patent left renal artery. Calcified plaque which appears to be causing near 50% hemodynamically significant stenosis of the origin of the right renal artery. 6. See above. RADIA
[2019-01-19 19:46] LABS: BACTERIA,URINE Many /HPF (None Seen); RBC,URINE 0-5 /HPF (0-5); SQUAMOUS EPITHELIAL CELL,UR FEW Squamous (<= Few); STARCH,URINE PRESENT
[2019-01-19 19:50] VITALS: BP 119/66
[2019-01-19] MEDS ORDERED: CIPROFLOXACIN 250 MG TABLET PO STA (20:07)
== END 2019-01-19 20:18 | disposition home or self-care (01) ==
LOC: EDUNIT# → ED 17:43
DX: I77.4 Celiac artery compression syndrome (principal); I70.1 Atherosclerosis of renal artery; R10.84 Generalized abdominal pain; N30.00 Acute cystitis without hematuria; I25.10 Atherosclerotic heart disease of native coronary artery without angina pectoris; I25.2 Old myocardial infarction; I10 Essential (primary) hypertension; Z95.5 Presence of coronary angioplasty implant and graft; Z87.891 Personal history of nicotine dependence; Z79.82 Long term (current) use of aspirin; Z90.710 Acquired absence of both cervix and uterus
CPT/HCPCS: 36415; 74174; 80053; 81001; 83605; 83690; 85025; 87086; 87181; 99283; 99284; A9270; Q9967; 81003

== ENCOUNTER 2019-03-12 12:34 | Outpatient (CLI) | payer MEDICARE, OTHER ==
--- NOTE | 2019-03-12 14:32 | Mammography Report ---
Reason: ABNORMAL MAMMOGRAM Procedure Date: 03/12/2019 Accession Number: [id number] / [id number] Procedure: [facility] - Diag Special Views Dig LT CPT Code: FULL RESULT: EXAM: Diag Special Views Dig LT DATE: 03/12/2019 1:32 PM CLINICAL HISTORY: Diagnostic examination. Family history of breast cancer in daughter. Patient is recalled from screening mammogram for increasing asymmetry in the left breast. TECHNIQUE: (L) - Left left ML, spot MLO and spot CC views are obtained. Focused left breast ultrasound is performed. COMPARISON: 10/15/2018 through 11/28/2013. PARENCHYMAL PATTERN: (A) - The breast(s) demonstrate(s) scattered fibroglandular densities. FINDINGS: Spot views demonstrate the previously seen ill-defined partially obscured isodense nodule with surrounding architectural distortion to persist with ill-defined borders in the left upper outer quadrant of the breast 7 to 8 cm from the nipple, left ML image 34. Focused left breast ultrasound demonstrates irregularly hypoechoic appearing parenchyma in the left breast at the 2:00 position approximately 4 cm from the nipple which potentially corresponds to the mammographic finding. Biopsy is warranted based on mammographic findings. IMPRESSION: Suspicious findings. BI-RADS category 4. RECOMMENDATION: (BIOPSY) - following discussion of risks and benefits of ultrasound-guided versus mammographically guided biopsy, the patient elected mammographic guidance to avoid potential repeat biopsy. BI-RADS CATEGORY: (4) - Suspicious. STANDARD QUALIFYING STATEMENTS: 1. This examination was not reviewed with the aid of Computer-Aided Detection (CAD). 2. A negative or benign imaging report should not preclude biopsy if clinically suspicious findings are present. 3. Dense breasts may obscure an underlying neoplasm. 4. This examination was reviewed with the aid of 3D breast imaging (tomosynthesis).
== END 2019-03-12 12:35 | disposition home or self-care (01) ==
LOC: DI 12:34
PROVIDERS: ATTEND Family Medicine
DX: N63.21 Unspecified lump in the left breast, upper outer quadrant (principal)
CPT/HCPCS: 76642; 77065; G0279

== ENCOUNTER 2019-03-22 09:33 | Outpatient (CLI) | payer MEDICARE, OTHER ==
[2019-03-22] MEDS ORDERED: BUFFERED LIDOCAINE 10 ML SYRINGE ONE (10:08)
[2019-03-22] MEDS ORDERED: BUPIVACAINE 0.5%-EPI 1:200000 PF 10 ML VIAL ONE (10:09)
[2019-03-22] MEDS ORDERED: BUFFERED LIDOCAINE 10 ML SYRINGE IU ONE (12:13)
--- NOTE | 2019-03-22 15:09 | Mammography Report ---
Reason: ABNORMAL MAMMOGRAM Procedure Date: 03/22/2019 Accession Number: [id number] / [id number] Procedure: [facility] - Stereotactic Core BX LT CPT Code: 36664 FULL RESULT: RADIA EXAM: Stereotactic Core BX LT DATE: 03/22/2019 12:03 PM CLINICAL HISTORY: Abnormal mammogram with left breast nodule. COMPARISON: 03/12/2019 through 11/28/2013. CLINICAL DATA: Target ill-defined nodule measuring 1.3 x 0.7 cm in the 2:30 o'clock axis of the left breast. Informed consent was obtained. The patient was positioned in the mammography machine with biopsy attachment. Targeting imaging was obtained and the lesion was selected. The breast was approached from the lateral aspect. Using standard aseptic technique, 1% buffered lidocaine was injected into the breasts for local anesthesia. A small nataly was made in the skin with a #11 blade. A 9-gauge vacuum-assisted device was advanced into the breasts towards the target and confirmatory imaging was obtained to verify targeting and 8 specimens were obtained. Specimen radiography was performed which demonstrated the presence of calcifications in the sample. A biopsy marker clip was then placed into the biopsy cavity. The biopsy device was subsequently removed from the breast. Hemostasis was achieved. Follow-up 3-D mammography was then performed to verify biopsy targeting and clip placement. The mammography showed concordant biopsy cavity with a portion of the targeted nodule missing and the clip along the biopsy tract. The wound was dressed and ice applied. The patient was observed for approximately 15 minutes, then discharged from the diagnostic imaging Department in stable condition following instructions on wound care and obtaining biopsy results. The tissue was sent for histologic analysis. IMPRESSION: Left breast biopsy. RADIA
== END 2019-03-22 09:34 | disposition home or self-care (01) ==
LOC: DI 09:33
PROVIDERS: ATTEND Family Medicine
DX: C50.512 Malignant neoplasm of lower-outer quadrant of left female breast (principal); Z17.0 Estrogen receptor positive status [ER+]
CPT/HCPCS: 19081; 88173; 88305; 88341; 88342; 88360

== ENCOUNTER 2019-05-01 09:40 | Outpatient (CLI) | payer MEDICARE, OTHER ==
[2019-05-01] MEDS ORDERED: GADOBUTROL 15 MMOL/15 ML VIAL ONE (11:14)
[2019-05-01] MEDS ORDERED: GADOBUTROL 10 MMOL/10 ML VIAL ONE ×2 (11:21→11:23)
[2019-05-01] MEDS ORDERED: GADOBUTROL 10 MMOL/10 ML VIAL IV ONE (11:51)
--- NOTE | 2019-05-01 14:25 | MRI Report ---
Reason: L BREAST CANCER Procedure Date: 05/01/2019 Accession Number: [id number] / [id number] Procedure: MRI - Breast W/WO Cont CPT Code: 13875 FULL RESULT: EXAM: BILATERAL BREAST MRI WITHOUT AND WITH CONTRAST EXAM DATE: 05/01/2019 12:00 PM CLINICAL HISTORY: Left breast cancer. TECHNIQUE: Dedicated breast coil: Axial - precontrast STIR Axial - postcontrast sequential 1 minute three-dimensional FLASH (x 5) Axial - high-resolution volumetric water stimulation acquisition (VIEWS) CONTRAST USED: 9 mL Gadavist. POSTPROCESSING: Subtraction dynamic/curve analysis and multiplanar reformations with CAD stream FINDINGS: Right breast: No mass or suspicious non-mass enhancement is detected. Normal distribution and appearance of breast parenchyma is noted. Normal morphology of axillary lymph nodes. No internal mammary lymphadenopathy. No skin thickening or distortion of breast architecture. Left breast: In the left breast 8 cm from the nipple is the biopsy-proven malignancy which measures 1.5 x 0.8 cm and demonstrates no suspicious non-mass enhancement to suggest further infiltrative extension of disease. There is no evidence of skin involvement. There is no evidence of chest wall involvement. There is no internal mammary lymphadenopathy. Visualized axillary lymph nodes demonstrate preservation of morphology. No separate mass is detected and there are no non-mass foci of suspicious enhancement by kinetics. IMPRESSION: Primary left breast mass measuring up to 1.5 cm. No suspicious lymphadenopathy or evidence of contralateral disease. COMMENT: The literature indicates that a negative dynamic breast MRI has a high sensitivity and specificity for the detection of invasive carcinoma (to a threshold of 5 mm). MRI is not reliably sensitive for detecting ductal carcinoma in situ or large invasive neoplasms with only minimal enhancement (i.e. mucinous carcinoma). Normal-appearing lymph nodes on MRI may contain microscopic tumor. Appropriate clinical mammographic and sonographic followup should be performed if recommended. Negative MRI should not dissuade further evaluation of any suspicious mammographic calcifications and/or worrisome palpable masses.
== END 2019-05-01 09:41 | disposition home or self-care (01) ==
LOC: DI 09:40
PROVIDERS: ATTEND Surgery
DX: C50.912 Malignant neoplasm of unspecified site of left female breast (principal)
CPT/HCPCS: 77049; A9585

== ENCOUNTER 2019-07-09 08:13 | Day surgery (SDC) | payer MEDICARE, OTHER ==
[2019-07-09] MEDS ORDERED: PROPOFOL 200 MG/20 ML VIAL IVP ONE (08:14)
[2019-07-09] MEDS ORDERED: MIDAZOLAM 2 MG/2 ML VIAL IVP ONE (08:14)
[2019-07-09] MEDS ORDERED: ePHEDrine 50 MG/ML VIAL IVP ONE (08:14)
[2019-07-09] MEDS ORDERED: LACTATED RINGERS 1,000 ML IV ONE ×4 (08:22→15:05)
[2019-07-09] MEDS ORDERED: CEFAZOLIN SODIUM IN 0.9 % NACL 2 GM/100 ML BAG IV ONE (09:14)
[2019-07-09] MEDS ORDERED: BUFFERED LIDOCAINE 10 ML SYRINGE ONE (09:41)
--- NOTE | 2019-07-09 11:24 | Nuclear Medicine Report ---
Reason: LT BREAST CA Procedure Date: 07/09/2019 Accession Number: [id number] / [id number] Procedure: NM - Lymph Node Scintigraphy CPT Code: FULL RESULT: EXAM: SENTINEL LYMPH NODE RADIOTRACER INJECTION WITH IMAGING EXAM DATE: 07/09/2019 10:49 AM. CLINICAL HISTORY: Left breast cancer. COMPARISON: None. TECHNIQUE: The injection site of the left breast was cleansed according to protocol. Next, a total of 0.53 mCi Tc-99m sulfur colloid in 1 cc saline was injected into the same site. After appropriate delay, the patient was imaged according to the protocol. FINDINGS: Single sentinel node was visualized within 6 minutes towards the axillary region. The patient tolerated the procedure well. IMPRESSION: 1. Salvo lymph node injection, without complication. 2. 1 focus in the left axilla, compatible with sentinel lymph node. RADIA
--- NOTE | 2019-07-09 12:20 | Mammography Report ---
Reason: LT BREAST CA Procedure Date: 07/09/2019 Accession Number: [id number] / [id number] Procedure: [facility] - Wire Localization LT CPT Code: 50137 FULL RESULT: EXAM: Wire Localization LT DATE: 07/09/2019 10:54 AM CLINICAL HISTORY: LT BREAST CA COMPARISON: 03/22/2019 through 10/15/2018. CLINICAL DATA: Target mass measuring at least 1 cm in the 2 o'clock axis of the left breast. Informed consent was obtained. The patient was positioned in the mammography machine with targeting greater attachment. Targeting imaging was obtained and the lesion was selected. The breast was approached from the lateral aspect. Using standard aseptic technique, 1% buffered lidocaine was injected into the breasts for local anesthesia. A localization needle with localization wire was advanced and the wire was positioned with imaging guidance and confirmatory imaging following placement including a 3-D mammogram. The patient was transferred to the surgical preoperative area in anticipation of lumpectomy. IMPRESSION: Mammographic localization with wire placement. RADIA
--- NOTE | 2019-07-09 12:22 | ANESTHESIA ---
Pre-Anesthesia VS, & Labs - Diagnosis left breast cancer - Procedure left breast lumpectomy, sentinal node dissection Vital Signs: Temp Pulse Resp BP Pulse Ox 36. C L 69 14 154/81 H 97 07/09/19 08:22 07/09/19 08:22 07/09/19 08:22 07/09/19 08:22 07/09/19 08:22 Height 5 ft 1 in Weight (kg) 88.3 kg Body Mass Index 37.4 - NPO >8 hours - Is Patient ?: No Home Medications and Allergies Home Medications: Ambulatory Orders Lisinopril 5 mg PO DAILY 07/08/19 Aspirin [Aspir 81] 81 mg PO DAILY 11/11/13 Atenolol [Tenormin] 10 mg PO DAILY 11/11/13 Atorvastatin Calcium 10 mg ORAL DAILY 09/03/17 Citalopram Hydrobromide [Citalopram HBr] 10 mg ORAL DAILY 09/03/17 Loratadine [Allergy Relief] 10 mg ORAL DAILY 09/03/17 Losartan Potassium 100 mg PO DAILY 09/03/17 Nitroglycerin [Nitrostat] 0.4 mg ORAL .FREQ PRN 09/03/17 Benzonatate 100 mg PO TID 01/19/19 Budesonide 1 mg IH PRN PRN 01/19/19 Calcium Carbonate [Antacid] 200 mg PO DAILY 01/19/19 Furosemide 20 mg PO BID 01/19/19 Guaifenesin [Mucinex] 600 mg PO PRN PRN 01/19/19 amLODIPine [Norvasc] 5 mcg NEB RTDAILY 01/19/19 Lisinopril 5 mg PO DAILY 07/08/19 Allergies/Adverse Reactions: Allergies Allergy/AdvReac Type Severity Reaction Status Date / Time No Known Drug Allergies Allergy Verified 01/19/19 17:51 Anes History & Medical History - Anesthetic History Anesthesia Complications: reports: No previous complications - Medical History Cardiovascular: reports: Hypertension, Coronary artery disease Pulmonary: reports: COPD, Sleep apnea Gastrointestinal: reports: GERD Urinary: reports: None Neuro: reports: None Musculoskeletal: reports: Osteoarthritis, Fibromyalgia, Chronic back pain Endocrine/Autoimmune: reports: None Skin: reports: None Smoking Status: Former smoker - Surgical History General: Appendectomy Eyes Ears Nose Throat (EENT): Other Cardiothoracic: Coronary stent Gynecologic: Hysterectomy Orthopedic: Other Exam General: Alert Dental: WNL Mouth Opening: Greater than 4 Fingerbreadths Mallampati classification: II Thyromental Distance: greater than 6 cm Respiratory: Lungs clear Cardiovascular: Regular rate, Normal S1, Normal S2, Other (4/6 murmur) Mental/Cognitive Status: Alert/Oriented X3 Plan Anesthesia Type: General Consent for Procedure(s) Verified and Reviewed: Yes Code Status: Attempt Resuscitation ASA classification: 3-Severe systemic disease Is this case an emergency?: Yes
[2019-07-09] MEDS ORDERED: BUPIVACAINE 0.5%-EPI 1:200000 PF 30 ML VIAL ONE (12:30)
[2019-07-09] MEDS ORDERED: LIDOCAINE-MPF 1% 30 ML VIAL ONE (12:30)
[2019-07-09] MEDS ORDERED: LIDOCAINE 1% 50 ML MDV SUBQ ONE ×2 (13:33)
[2019-07-09] MEDS ORDERED: BUPIVACAINE 0.5%-EPI 1:200000 PF 30 ML VIAL SUBQ ONE ×2 (13:33)
[2019-07-09] MEDS ORDERED: oxyCODONE 5 MG TABLET PO PRN (15:02)
[2019-07-09] MEDS ORDERED: HYDROmorphone 0.5 MG/0.5 ML SYRINGE IVP PRN (15:02)
[2019-07-09] MEDS ORDERED: ONDANSETRON 4 MG/2 ML VIAL IVP PRN (15:02)
[2019-07-09] MEDS ORDERED: HYDROmorphone 0.5 MG/0.5 ML SYRINGE ONE (15:13)
--- NOTE | 2019-07-09 15:29 | Mammography Report ---
Reason: S/P LEFT BREAST LUMPECTOMY Procedure Date: 07/09/2019 Accession Number: [id number] / [id number] Procedure: [facility] - Breast Specimen Surgical CPT Code: FULL RESULT: EXAM: Breast Specimen Surgical DATE: 07/09/2019 2:09 PM CLINICAL HISTORY: Biopsy-proven breast cancer, surgical specimen. TECHNIQUE: Specimen radiography is performed. COMPARISON: 07/09/2019 through 10/15/2018. FINDINGS: A total of 3 individual lumpectomy specimens are submitted for review. The first lumpectomy specimen contains the distal portion of the wire including the thick portion and distal hook, these were positioned within the targeted lesion. Additionally, a second specimen contains a surgical biopsy clip as well as the biopsy marker. A third lumpectomy specimen contains tissue. IMPRESSION: Lumpectomy specimen containing biopsy clip as well as guidewire with visualized target tissue.
[2019-07-09] MEDS ORDERED: fentaNYL 100 MCG/2 ML VIAL ONE (15:33)
[2019-07-09] MEDS ORDERED: oxyCODONE 5 MG TABLET ONE (16:05)
[2019-07-09 17:12] VITALS: BP 126/84
--- NOTE | 2019-07-10 16:42 | OPERATIVE REPORT ---
Operative Report - General Procedure Date: 07/09/19 Planned Procedure: Left breast lumpectomy and sentinel node biopsy after needle localization mapping Pre-Op Diagnosis: Biopsy-proven left breast cancer Procedure Performed: Left breast lumpectomy and sentinel node biopsy following needle localization and mapping Post Op Diagnosis: Biopsy-proven left breast cancer - Procedure Note Primary Surgeon: Phong Anesthesia Provider: MALCOM Comer Anesthesia Technique: General LMA, Local, Regional block Pathology: 1. One sentinel node to pathology in formalin - 10 second count TNTC. Background in the axilla of 12. Background in the room of 0 2. Left breast lumpectomy specimen containing the wire. No clip seen 3. Additional anterior margin 4. Additional posterior margin. Clip and mass identified in the additional margins Estimated Blood Loss (mL): 25 Findings: One sentinel node. No evidence of muscle or skin involvement in the malignant process Complications: None apparent - Other Other Information/Narrative: After obtaining informed consent, patient is brought to the operating room and placed in the supine position on the operating table. Following successful induction of general endotracheal anesthesia, appropriate padding of all bony prominences, and placement of appropriate monitors, the left chest, breast, and axilla were prepped in the standard surgical fashion. A timeout was held per scope protocol. All elements of the surgical safety checklist were followed before, during, and after the procedure. We began with the sentinel node biopsy in the left axilla. Following infiltration with local anesthetic to create a field block, an incision was created in a natural skin fold in the left axilla and carried down through the skin and tissue. This dissection was continued through subcuticular region andInto the axillary fat pad and deep axillary chain. A single level 2 sentinel node was identified. 10-second count was too numerous to count. Background in the axilla was 12. Background in the room was noted to be zero. The node was gently grasped and elevated into the field. It was liberated from the surrounding tissue by clipping vasculature and lymphatics prior to division. The node was then placed on the back table counts obtained. Once this had been completed, it was placed in formalin for submission to pathology. We continued with the left breast lumpectomy. An incision was created at the site of the needle this was carried through the skin and subcutaneous tissue. We then followed the wire to the breast tissue slightly lateral and posterior to the nipple areolar complex. The wire and surrounding breast tissue was then liberated sharply. It was marked for orientation and sent to specimen radiography. Dr. Katz returned to the operating room reporting that he could see the wire and the associated calcifications that he did not see the biopsy clip and could not clearly identify the lesion. We elected to take additional a nterior margin as well as an additional posterior margin. These were both marked appropriately for orientation and both submitted for specimen radiograph. We were able to identify the clip and the mass in these 2 additional specimens. The wound was checked for hemostasis. It was irrigated with warm water. The left axillary wound was again checked for hemostasis and irrigated with warm water. The biopsy cavity was marked with hemoclips. The tissue was then closed in 2 layers with Vicryl Monocryl suture and a left axillary incision was also closed with Vicryl Monocryl suture. The wounds were dressed with Dermabond and a compressive dressing. All sponge, needle, and instrument counts are correct at the conclusion of the case. Patient was allowed to awaken from anesthesia without difficulty and taken to the postanesthesia care unit in good condition.
== END 2019-07-09 08:14 | disposition home or self-care (01) ==
LOC: DI 08:13
PROVIDERS: ATTEND Surgery
PROC: 0HBU0ZZ Excision of Left Breast, Open Approach (ICD-10-PCS; principal; 2019-07-09 12:15)
PROC: 07B60ZX Excision of Left Axillary Lymphatic, Open Approach, Diagnostic (ICD-10-PCS; 2019-07-09 12:15)
DX: C50.912 Malignant neoplasm of unspecified site of left female breast (principal); Z17.0 Estrogen receptor positive status [ER+]; J44.9 Chronic obstructive pulmonary disease, unspecified; I10 Essential (primary) hypertension; R73.01 Impaired fasting glucose; G47.30 Sleep apnea, unspecified; I25.10 Atherosclerotic heart disease of native coronary artery without angina pectoris
CPT/HCPCS: 76098; 78195

== ENCOUNTER 2020-06-23 09:28 | Outpatient (CLI) | payer MEDICARE, OTHER ==
--- NOTE | 2020-06-23 13:26 | Mammography Report ---
BILATERAL DIGITAL DIAGNOSTIC MAMMOGRAM 3D/2D POST-EXCISIONAL BIOPSY: 06/23/2020 CLINICAL: Patient returns for a 6 month follow up of the left breast. Post biopsy. Comparison is made to exams dated: 01/17/2019 mammogram, 03/12/2019 mammogram, 05/01/2019 breast MRI, an d 10/15/2018 mammogram - [facility]. The tissue of both breasts is predominantly fa tty. There are benign post operative changes and surgical clips in the left breast. No significant masses, calcifications, or other findings are seen in either breast. IMPRESSION: BENIGN There is no mammographic evidence of malignancy. A 1 year screening mammogram is recommended. This exam was interpreted at Station ID: [id number]. NOTE: For mammograms, a report in lay terms will be sent to the patient. Approximately 15% of breast malignancies will not be visualized mammographically. In the management of a palpable breast mass, a negative mammogram must not discourage biopsy of a clinically suspicious lesion. Electronically Signed By: Antonio carcamo/cecille:06/23/2020 10:24:05 ACR BI-RADS Category 2: Benign Finding(s) 3342F PARENCHYMAL PATTERN: (F) - The breast(s) demonstrate(s) diffuse fatty replacement. BI-RADS CATEGORY: (2) - 2 RECOMMENDATION: (ANNUAL) - Recommend routine annual screening mammography. [id number] 1 year screening LATERALITY: (B)
== END 2020-06-23 09:29 | disposition home or self-care (01) ==
LOC: DI 09:28
PROVIDERS: ATTEND Internal Medicine Hematology & Oncology
DX: Z08 Encounter for follow-up examination after completed treatment for malignant neoplasm (principal); Z85.3 Personal history of malignant neoplasm of breast
CPT/HCPCS: 77066

== ENCOUNTER 2020-07-25 13:19 | Outpatient (CLI) | payer MEDICARE, OTHER | END 2020-07-25 13:20 | disposition home or self-care (01) | LOC: RT 13:19 | PROVIDERS: ATTEND Physician Assistant Medical | DX: R06.00 Dyspnea, unspecified (principal) | CPT/HCPCS: 94010 ==

== ENCOUNTER 2021-02-08 08:58 | Outpatient (CLI) | payer MEDICARE, OTHER ==
--- NOTE | 2021-02-08 10:53 | CARDIAC PROCEDURE NOTE ---
Stress Test Report Service Date: 02/08/21 Ordering Provider: Dr Titi Amor Indication for Test: Dyspnea on exertion, cardiac murmur Cardiac Risk Factors: Post-menopausal status, HTN, elevated cholesterol, ex-smoker (quit 6 years ago). Type of Stress Test: ETT with Echocardiography (No Doppler was ordered to evaluate cardiac murmur) Procedure: After signing informed consent, the patient underwent Phil -protocol exercise treadmill stress testing with Echocardiography imaging pre- and post-exercise. Resting Heart Rate: 72 Peak HR: 121 (84% predicted maximum heart rate or age) Resting BP: 154/77 Peak BP: 212/89 The patient exercised for 3 min on a Phil-protocol treadmill and achieved a peak HR of 121 (84% PMHR), and 4.74 METS. She had no chest pain or arm pain, but developed shortness of breath quickly. Oxygen saturation was 94-99% on room air throughout the test. The patient rated her perceived exertion at 16/20 at peak exercise. Resting EKG: Normal sinus rhythm rate 68, LVH voltage, early R/S Transition. EKG at peak: 0.5mm upsloping ST depresssions in leads II, III, AVF, and V4-V6. Summary: 1. Abnormal resting EKG. 2. Poor exercise tolerance. 3. No significant ischemic changes develop with exercise by EKG criteria. 4. Echo images were reported separately and showed: Normal resting LV function, LVEF 70%, and normal hyperdynamic augmentation of all LV segments with exercise. IMPRESSION: 1. Normal stress test evaluating for coronary ischemia. 2. Significant aortic stenosis is suspected by Echo 2D imaging. There was no complete Doppler of the valves ordered, however. RECOMMENDATIONS: 1. A complete Echo with Doppler evaluation is advised since significant aortic stenosis is suspected and may be the cause of her dyspnea and exercise intolerance.
== END 2021-02-08 08:59 | disposition home or self-care (01) ==
LOC: DI 08:58
PROVIDERS: ATTEND Family Medicine
DX: R06.09 Other forms of dyspnea (principal); R01.1 Cardiac murmur, unspecified; Z78.0 Asymptomatic menopausal state; I10 Essential (primary) hypertension; E78.00 Pure hypercholesterolemia, unspecified; Z87.891 Personal history of nicotine dependence
CPT/HCPCS: 93350

== ENCOUNTER 2021-03-01 18:11 | Outpatient (CLI) | payer MEDICARE, OTHER | END 2021-03-01 18:12 | disposition critical access hospital (66) | LOC: EMS 18:11 | DX: R07.9 Chest pain, unspecified (principal) | CPT/HCPCS: A0425; A0429 ==

== ENCOUNTER 2021-03-01 18:40 | Inpatient (IN) | payer MEDICARE, OTHER ==
[2021-03-01 19:14] LABS: BASOPHILS % (AUTO) 0.3 %; EOSINOPHILS # (AUTO) 0.3 10^3/uL (0.0-0.7); EOSINOPHILS % (AUTO) 2.2 %; HCT - HEMATOCRIT 37.3 % (37.0-47.0); HGB - HEMOGLOBIN 12.5 g/dL (12.0-16.0); LYMPHOCYTES % (AUTO) 34.6 %; MEAN CORPUSCULAR HEMOGLOBIN 30.1 pg (27.0-31.0); MEAN CORPUSCULAR HGB CONC 33.5 g/dL (32.0-36.0); MEAN CORPUSCULAR VOLUME 89.9 fL (81.0-99.0); MEAN PLATELET VOLUME 9.9 fL (7.9-10.8); MONOCYTES % (AUTO) 8.8 %; NEUTROPHILS # (AUTO) 6.2 10^3/uL (1.5-6.6); NEUTROPHILS % (AUTO) 53.8 %; PLT - PLATELET COUNT 267 10^3/uL (130-450); RED BLOOD COUNT 4.15 10^6/uL (4.20-5.40); RED CELL DISTRIBUTION WIDTH 12.5 % (12.0-15.0); WHITE BLOOD COUNT 11.6 x10^3/uL (4.8-10.8)
--- NOTE | 2021-03-01 19:19 | XRAY Report ---
PROCEDURE: Chest 1 View X-Ray INDICATIONS: Chest pain TECHNIQUE: One view of the chest was acquired. COMPARISON: Chest x-ray 2 view, 09/08/2017. FINDINGS: Surgical changes and devices: None. Lungs and pleura: No pleural effusions or pneumothorax. Chronic interstitial prominence. Lungs are less clear. Mediastinum: Mediastinal contours appear normal. Heart size is normal. Bones and chest wall: No suspicious bony lesions. Overlying soft tissues appear unremarkable. IMPRESSION: 1. No acute cardiopulmonary disease. 2. Chronic interstitial prominence is seen interstitial lung disease. Reviewed by: Erich De La Garza MD on 03/01/2021 7:17 PM PDT Approved by: Erich De La Garza MD on 03/01/2021 7:17 PM PDT Station ID: [id number]
--- NOTE | 2021-03-01 19:29 | ED Physician Documentation ---
PD HPI CHEST PAIN - Stated complaint Stated Complaint: ANGINA - Chief complaint Chief Complaint: Cardiac - History obtained from History obtained from: Patient - Additional information Additional information: 76-year-old woman with known coronary disease, last angiogram approximately 3 years ago. Also has a known valvular issue but she does not know the details. Suspect after talking to her that she has aortic stenosis since she was told it may need to be fixed at some point. She had 45 minutes of angina tonight. It started at rest. She thought it was going to go away repeat Josephine did not take nitro until 45 minutes in which point the pain abated. She is pain-free now. It felt like a charley horse in her chest. It was nonradiating. No associated sweats, nausea, shortness of breath. Review of Systems Ten Systems: 10 systems reviewed and negative Constitutional: denies: Fever, Chills Eyes: denies: Loss of vision, Decreased vision Nose: reports: Reviewed and negative Throat: reports: Reviewed and negative PD PAST MEDICAL HISTORY - Past Medical History Cardiovascular: Hypertension, Coronary artery disease Respiratory: COPD, Sleep apnea Neuro: None Endocrine/Autoimmune: None GI: GERD MOTORS AND CONTROLS TESTER: None : None HEENT: Chronic vision loss, Chronic hearing loss Psych: Anxiety, Panic attacks Musculoskeletal: Osteoarthritis, Fibromyalgia, Chronic back pain Derm: None - Past Surgical History Past Surgical History: Yes General: Appendectomy Ortho: Other /MOTORS AND CONTROLS TESTER: Hysterectomy Cardiovascular: Coronary stent HEENT: Other - Present Medications Home Medications: Ambulatory Orders Medication Instructions Recorded Confirmed Aspirin [Aspir 81] 81 mg PO DAILY 11/11/13 01/04/21 atenoloL [Tenormin] 50 mg PO DAILY 11/11/13 01/04/21 Albuterol 2.5 mg INH Q4H PRN #30 neb 09/03/17 01/04/21 Atorvastatin Calcium 80 mg ORAL DAILY 09/03/17 01/04/21 Losartan Potassium 100 mg PO DAILY 09/03/17 01/04/21 Nitroglycerin [Nitrostat] 0.4 mg ORAL .FREQ PRN 09/03/17 01/04/21 Benzonatate 100 mg PO PRN PRN 01/19/19 01/04/21 Budesonide 1 mg IH PRN PRN 01/19/19 01/04/21 Calcium Carbonate [Antacid] 200 mg PO DAILY 01/19/19 01/04/21 Furosemide 20 mg PO BID 01/19/19 01/04/21 Calcium Carbonate [Calcium] 600 mg PO DAILY 09/30/19 01/04/21 Tamoxifen Citrate 20 mg PO DAILY #90 tablet 06/30/20 01/04/21 - Allergies Allergies/Adverse Reactions: Allergies Allergy/AdvReac Type Severity Reaction Status Date / Time No Known Drug Allergies Allergy Verified 03/01/21 18:49 - Social History Does the pt smoke?: No Smoking Status: Never smoker Does the pt drink ETOH?: No Does the pt have substance abuse?: No - Immunizations Immunizations are current?: Yes - POLST Patient has POLST: No PD ED PE NORMAL - Vitals Vital signs reviewed: Yes - General General: Alert and oriented X 3, No acute distress - HEENT HEENT: PERRL, EOMI - Neck Neck: Supple, no meningeal sign, No bony TTP - Cardiac Cardiac: RRR, Other (4 out of 6 decrescendo but holosystolic murmur heard best at the upper sternal borders.) - Respiratory Respiratory: No respiratory distress, Clear bilaterally - Abdomen Abdomen: Normal bowel sounds, Soft, Non tender - Back Back: No CVA TTP, No spinal TTP - Derm Derm: Normal color, Warm and dry - Extremities Extremities: No edema, No calf tenderness / cord - Neuro Neuro: Alert and oriented X 3, Normal speech Results - Vitals Vitals: Vital Signs - 24 hr 03/01/21 03/01/21 18:44 19:46 Temperature 37.0 C Heart Rate 86 67 Respiratory 11 L 20 Rate Blood Pressure 181/73 H 163/70 H O2 Saturation 97 96 Oxygen O2 Source Room air - EKG (time done) 1851 Rate: Rate (enter#) (63) Rhythm: NSR Cat[place]: Normal Intervals: Normal DC QRS: LVH Ischemia: Normal ST segments - Labs Labs: Laboratory Tests 03/01/21 03/01/21 03/01/21 19:08 19:08 19:08 WBC 11.6 H RBC 4.15 L Hgb 12.5 Hct 37.3 MCV 89.9 MCH 30.1 MCHC 33.5 RDW 12.5 Plt Count 267 MPV 9.9 Neut # (Auto) 6.2 Lymph # (Auto) 4.0 H Braxton # (Auto) 1.0 Eos # (Auto) 0.3 Baso # (Auto) 0.0 Absolute Nucleated RBC 0.00 Nucleated RBC % 0.0 Sodium 135 Potassium 4.0 Chloride 101 Carbon Dioxide 23 Anion Gap 11.0 BUN 18 Creatinine 0.8 Estimated GFR (MDRD) 70 L Glucose 80 Calcium 9.1 Total Bilirubin 0.3 AST 21 ALT 18 Alkaline Phosphatase 68 Troponin I High Sens 9.6 Total Protein 6.9 Albumin 3.8 Globulin 3.1 Albumin/Globulin Ratio 1.2 Lipase 32 PD MEDICAL DECISION MAKING - ED course ED course: 76-year-old woman with single episode of rest angina tonight. Her EKG is nonischemic and she is pain-free here. And she says it been quite a bit had a negative stress test 2 weeks ago per her. Chart was reviewed and she had stress echocardiogram which did demonstrate moderate to severe aortic stenosis not completely evaluated. Poor exercise capacity, no ischemia or infarct at the level of workload achieved, ejection fraction 70%. 76-year-old woman with known coronary disease presents with 45 minutes of rest pain which is not atypical her for her but the length of it was. That said she did not take nitroglycerin until 45 minutes into the episode. She had another episode of rest pain here, during the pain her EKG remained nonischemic. I discussed the case by phone With the cellar packer on-call for hers, Dr. Layne. He felt she could be placed in observation here to have a formal echo to make sure she had not developed symptomatic aortic stenosis. Spoke with Dr. Prieto for same at 8:36 PM. Departure - Departure Disposition: ED Place in Observation Clinical Impression: Aortic stenosis Qualifiers: Cardiac valve disease etiology: nonrheumatic Qualified Code(s): I35.0 - Nonrheumatic aortic (valve) stenosis Chest pain Qualifiers: Qualified Code(s): R07.82 - Intercostal pain Condition: Stable Discharge Date/Time: 03/01/21 21:18
[2021-03-01 19:30] LABS: ALBUMIN 3.8 g/dL (3.2-5.5); ALBUMIN/GLOBULIN RATIO 1.2 (1.0-2.2); BILIRUBIN,TOTAL 0.3 mg/dL (0.2-1.0); CALCIUM 9.1 mg/dL (8.5-10.3); CREATININE 0.8 mg/dL (0.4-1.0); TOTAL PROTEIN 6.9 g/dL (6.7-8.2)
[2021-03-01] MEDS ORDERED: NITROGLYCERIN SL 0.4 MG TABLET SL STA (19:40)
--- NOTE | 2021-03-01 20:45 | HISTORY & PHYSICAL EXAMINATION ---
Chief Complaint - Chief Complaint Chief Complaint: Chest pain History of Present Illness - Admitted From Admitted From:: ED - History Obtained From History obtained from: ED provider and patient - History of Present Illness HPI Comment/Other: This is a 76-year-old white female with a history of CAD with stents, aortic stenosis, COPD, sleep apnea and obesity. Patient had an elective outpatient stress test done 2 weeks ago to evaluate shortness of breath. She had no chest pain with the exercise, achieved 84% predicted maximum heart rate on a treadmill but was exhausted. The Echo imaging portion showed no areas of wall motion abnormalities signifying no ischemia. Of note, there was no Doppler exam ordered with the echo and on inspection the aortic valve appeared to have moderate to severe aortic stenosis and a full Echo with Doppler was strongly advised in the report. The patient has occasional chest pain which usually responds to sublingual nitroglycerin quickly. Today she had a 45-minute episode of chest pain which is longer than usual and she did not take a sublingual nitroglycerin for it because she "thought it was going away each time she thought about taking nitro". She presented to the emergency room because of this prolonged episode of chest pain. In the ER she had a witnessed episode of chest pain at rest that was relieved promptly with 1 sublingual nitroglycerin. An EKG was done during the chest pain that showed no ischemic changes. The ER provider called her Dressage Instructor's (Dr Frias) covering doctor (Dr Layne), who advised that the patient be placed in Observation hat, undergo troponin labs and have a complete Echo. History - Past Medical History Cardiovascular: reports: Hypertension, Coronary artery disease, Murmur (Aortic stenosis murmur) Respiratory: reports: COPD, Sleep apnea Neuro: reports: None Endocrine/Autoimmune: reports: None GI: reports: GERD CORN SHELLER OPERATOR: reports: None : reports: None HEENT: reports: Chronic vision loss, Chronic hearing loss Psych: reports: Anxiety, Panic attacks Musculoskeletal: reports: Osteoarthritis, Fibromyalgia, Chronic back pain Derm: reports: None MRSA Hx?: No - Past Surgical History General: reports: Appendectomy Ortho: reports: Other /CORN SHELLER OPERATOR: reports: Hysterectomy Cardiovascular: reports: Coronary stent HEENT: reports: Other - Family & Social History Family History: Mother: , Father: , Sister: Alive and Well, Brother: Alive and Well Family History Comment/Other: She had 3 children with her first and 2 children with her second , is . Her first child of a brain tumor at age 7. Living arrangement: At home Living Situation: Alone - Substance History Use: Uses substance without health or social issues: NONE - POLST Patient has POLST: No POLST Status: Full Code Meds/Allgy - Home Medications Home Medications: Ambulatory Orders Medication Instructions Recorded Confirmed Aspirin [Aspir 81] 81 mg PO DAILY 11/11/13 01/04/21 atenoloL [Tenormin] 50 mg PO DAILY 11/11/13 01/04/21 Albuterol 2.5 mg INH Q4H PRN #30 neb 09/03/17 01/04/21 Atorvastatin Calcium 80 mg ORAL DAILY 09/03/17 01/04/21 Losartan Potassium 100 mg PO DAILY 09/03/17 01/04/21 Nitroglycerin [Nitrostat] 0.4 mg ORAL .FREQ PRN 09/03/17 01/04/21 Benzonatate 100 mg PO PRN PRN 01/19/19 01/04/21 Budesonide 1 mg IH PRN PRN 01/19/19 01/04/21 Calcium Carbonate [Antacid] 200 mg PO DAILY 01/19/19 01/04/21 Furosemide 20 mg PO BID 01/19/19 01/04/21 Calcium Carbonate [Calcium] 600 mg PO DAILY 09/30/19 01/04/21 Tamoxifen Citrate 20 mg PO DAILY #90 tablet 06/30/20 01/04/21 - Allergies Allergies/Adverse Reactions: Allergies Allergy/AdvReac Type Severity Reaction Status Date / Time No Known Drug Allergies Allergy Verified 03/01/21 18:49 Review of Systems - Ears, Nose & Throat Ears, Nose & Throat: reports: Hearing loss - Cardiovascular Cariovascular: reports: Chest pain, Exertional dyspnea, Decr. exercise tolerance - Gastrointestinal Gastrointestinal: reports: Reflux/heartburn - Genitourinary Genitourinary: reports: Other (She gets frequent UTIs. Patient states she was put on a 5-day course of antibiotics by her PCP for a UTI and has 2 more days of antibiotics to go (she brings in the bottle but it is not labeled).) - All Other Systems All Other Systems: reports: Reviewed and negative Exam - Vital Signs Vital Signs: Vital Signs x48h Temp Pulse Resp BP Pulse Ox 03/01/21 19:46 67 20 163/70 H 96 03/01/21 18:44 37.0 C 86 11 L 181/73 H 97 - Physical Exam General Appearance: positive: No acute distress, Alert Eyes Bilateral: positive: Normal inspection, EOMI ENT: positive: ENT inspection nml, No signs of dehydration Neck: positive: Nml inspection, No JVD Respiratory: positive: No respiratory distress, Breath sounds nml Cardiovascular: positive: Regular rate & rhythm, Systolic murmur (4/6 late peaking systolic murmur heard loudest at the aortic area) Abdomen: positive: Non-tender, Nml bowel sounds, No distention Skin: positive: Warm, Dry Extremities: positive: Non-tender, Other (Trace pedal edema) Neurologic/Psychiatric: positive: Oriented x3 (Non-focal) Conclusion/Plan - Problem List (1) Chest pain Conclusion/Plan: This patient just underwent a stress test (2 weeks ago) to evaluate the cause of her chest pain. She had no chest pain during exercise, nonspecific EKG changes and the echo portion showed normal augmentation of all LV segments indicating that she passed her stress test checking for coronary ischemia. There is a chance that the test was a false negative however. When she had a recurrence of her resting chest pain in the ED today, an EKG was done during chest pain, and this showed no ischemic changes The biggest concern is that her aortic stenosis has now become severe and is symptomatic. Will obtain 3 serial troponins to check for ACS. We will continue with her sublingual nitroglycerin as needed. We will add oral long-acting nitrate (Imdur) and because of that, will decrease her Losartan dose and her Atenolol dose, in order to avoid hypotension. Will obtain a complete Echo to evaluate her aortic stenosis and all her valves. Qualifiers: Ischemic chest pain type: unspecified angina pectoris type (2) Aortic stenosis Conclusion/Plan: As above. Adding the Imdur necessitates decreasing her Losartan and her Beta-tameka to avoid hypotension, since the patient has a fixed afterload with her possibly severe aortic stenosis. Echo ordered. Qualifiers: Cardiac valve disease etiology: nonrheumatic Qualified Code(s): I35.0 - Nonrheumatic aortic (valve) stenosis (3) Hx of coronary artery disease Conclusion/Plan: As described in #1 above, she has coronary stents and she passed her outpatient stress test just 2 weeks ago. We will continue with her daily aspirin, statin and beta-tameka. (4) Renal artery stenosis Conclusion/Plan: As per Hx. She is diffuse vascular disease apparently. We will continue her aspirin and statin. Check fasting lipid panel and treat per guidelines. (5) HTN (hypertension) Conclusion/Plan: Patient was on losartan and atenolol. We will add Imdur and discharge her on this, and decrease the Losartan and beta-tameka dose. This was explained to the patient, she understands and is agreeable with the plan. (6) GERD (gastroesophageal reflux disease) Conclusion/Plan: Continue her home meds and management for this. - Lab Results Fish Bones: 03/01/21 19:08 03/01/21 19:08
[2021-03-01] MEDS ORDERED: ONDANSETRON 4 MG/2 ML VIAL IVP PRN (21:12)
[2021-03-01] MEDS ORDERED: SODIUM CHLORIDE FLUSH 0.9% 10 ML SYRINGE IVP PRN (21:12)
[2021-03-01 21:36] LABS: INR 1.1 (0.8-1.2); PT - PROTHROMBIN TIME 12.6 secs (9.9-12.6)
[2021-03-01 21:44] LABS: CORONAVIRUS 229E-RESP PCR NOT DETECTED; CORONAVIRUS HKU1-RESP PCR NOT DETECTED; CORONAVIRUS NL63-RESP PCR NOT DETECTED
[2021-03-01 21:45] LABS: B. PARAPERTUSSIS- RESP PCR PAN NOT DETECTED; B. PERTUSSIS- RESP PCR PANEL NOT DETECTED; C. PNEUMONIAE- RESP PCR PANEL NOT DETECTED; CORONAVIRUS OC43-RESP PCR NOT DETECTED; HUMAN METAPNEUMOVIRUS NOT DETECTED; INFLUENZA A- RESP PCR PANEL NOT DETECTED; INFLUENZA B - RESP PCR PANEL NOT DETECTED; M. PNEUMONIAE- RESP PCR PANEL NOT DETECTED; PARAINFLUENZA VIRUS 1 NOT DETECTED; PARAINFLUENZA VIRUS 2 NOT DETECTED; PARAINFLUENZA VIRUS 3 NOT DETECTED; PARAINFLUENZA VIRUS 4 NOT DETECTED; RHINOVIRUS/ENTEROVIRUS NOT DETECTED; RSV- RESP PCR PANEL NOT DETECTED; SARS-CoV-2 -RESP PCR PANEL NOT DETECTED
[2021-03-02] MEDS: SODIUM CHLORIDE FLUSH 0.9% 10 ML SYRINGE IVP SCH ×3 (00:20→17:47)
[2021-03-02] MEDS: CALCIUM CARBONATE CHEW 500 MG TABLET PO SCH ×3 (00:27→20:06)
[2021-03-02] MEDS: ALBUTEROL NEB 2.5 MG/3 ML INH PRN (00:32)
[2021-03-02] MEDS: BUDESONIDE 0.5 MG/2 ML NEB INH SCH ×3 (00:37→17:33)
[2021-03-02 05:07] LABS: BASOPHILS % (AUTO) 0.4 %; EOSINOPHILS # (AUTO) 0.2 10^3/uL (0.0-0.7); EOSINOPHILS % (AUTO) 2.2 %; HCT - HEMATOCRIT 35.9 % (37.0-47.0); HGB - HEMOGLOBIN 11.5 g/dL (12.0-16.0); LYMPHOCYTES # (AUTO) 3.7 10^3/uL (1.5-3.5); LYMPHOCYTES % (AUTO) 33.9 %; MEAN CORPUSCULAR HEMOGLOBIN 29.4 pg (27.0-31.0); MEAN CORPUSCULAR VOLUME 91.8 fL (81.0-99.0); MONOCYTES # (AUTO) 0.8 10^3/uL (0.0-1.0); MONOCYTES % (AUTO) 7.1 %; NEUTROPHILS # (AUTO) 6.2 10^3/uL (1.5-6.6); NEUTROPHILS % (AUTO) 55.9 %; PLT - PLATELET COUNT 248 10^3/uL (130-450); RED BLOOD COUNT 3.91 10^6/uL (4.20-5.40); RED CELL DISTRIBUTION WIDTH 12.6 % (12.0-15.0)
[2021-03-02 05:19] LABS: CALCIUM 9.2 mg/dL (8.5-10.3); CREATININE 0.9 mg/dL (0.4-1.0); MAGNESIUM 2.1 mg/dL (1.7-2.8); POTASSIUM 3.7 mmol/L (3.5-5.0)
[2021-03-02] MEDS: ASPIRIN EC 81 MG TABLET PO SCH (08:17)
[2021-03-02] MEDS: atenoloL 25 MG TABLET PO SCH (08:18)
[2021-03-02] MEDS: ISOSORBIDE MONONITRATE ER 30 MG TABLET PO SCH (08:18)
[2021-03-02] MEDS: TAMOXIFEN 10 MG TABLET PO SCH (08:20)
[2021-03-02] MEDS ORDERED: LOSARTAN 50 MG TABLET PO SCH (09:00)
[2021-03-02] MEDS ORDERED: atenoloL 25 MG TABLET PO SCH (09:00)
--- NOTE | 2021-03-02 12:16 | PHARMACY PROGRESS NOTE ---
- Best Possible Medication History Admit Date and Time: 03/01/212040 Processed by: Pharmacy Medication History completed: Yes Secondary Source(s): Prescription bottles Patient brought in their medication bottles from home. Medication list updated using current prescription labels. As the person ultimately responsible for medication therapy, providers are able to order a medication from an existing home medication list in [facility] via the "Reconcile Routine" prior to Confirmation of that medication by print support specialist. Such practice is discouraged except when the physician, in their clinical judgment, deems that a medical need exists for a medication without regard to previous use.
[2021-03-02] MEDS: FUROSEMIDE 20 MG TABLET PO SCH (13:53)
[2021-03-02] MEDS ORDERED: CALCIUM CARBONATE CHEW 500 MG TABLET PO STA (13:57)
--- NOTE | 2021-03-02 14:12 | Discharge Plan ---
Discharge Plan Problem Reviewed?: Yes Condition: Stable Diet: Cardiac Activity Restrictions: Activity as Tolerated Instruction Topics: Aortic Valve Stenosis Dc Health Concerns: You were admitted to the hospital because of chest pain which is felt to be due to stenosis of your aortic valve. We did an echocardiogram which confirmed this and this is likely causing you to have the chest pain. We spoke with your rougher operator who recommend seeing you on an outpatient basis for further work-up and management of this. Plan of Treatment: We did adjust your blood pressure medications. Please take half dose of your losartan and atenolol. We have prescribed you Imdur which can help with chest pain as this is a long-acting nitrate. Care Goals: The goal is to treat the underlying aortic stenosis to prevent further episodes of chest pain. Assessment: Patient expressed understanding of the treatment plan. Additional Instructions or Follow Up instructions: Please follow-up with your rougher operator as soon as possible. No Smoking: If you smoke, Please STOP! Call for help. Follow-up with: Titi Amor DO [Primary Care Provider] -
--- NOTE | 2021-03-02 15:27 | PROVIDER PROGRESS NOTE ---
Subjective - Prog Note Date Prog Note Date: 03/02/21 - Subjective Subjective: She reports feeling better today. Currently denies any chest pain or dyspnea. She has not ambulated very much. Does complain of occasional heartburn. Current Medications - Current Medications Current Medications: Active Medications Acetaminophen (Acetaminophen 325 Mg Tablet) 650 mg PO Q4HR PRN PRN Reason: Pain 1 to 4 Albuterol (Albuterol Neb 2.5 Mg/3 Ml) 2.5 mg INH RTQ4H PRN PRN Reason: Wheezing Last Admin: 03/02/21 00:32 Dose: 2.5 mg Documented by: Aspirin (Aspirin Ec 81 Mg Tablet) 81 mg PO DAILY [facility] Last Admin: 03/02/21 08:17 Dose: 81 mg Documented by: Atenolol (Atenolol 25 Mg Tablet) 25 mg PO DAILY [facility] Last Admin: 03/02/21 08:18 Dose: 25 mg Documented by: Budesonide (Budesonide 0.5 Mg/2 Ml Neb) 0.5 mg INH RTBID [facility] Last Admin: 03/02/21 08:00 Dose: 0.5 mg Documented by: Calcium Carbonate/Glycine (Calcium Carbonate Chew 500 Mg Tablet) 500 mg PO BID [facility] Last Admin: 03/02/21 08:18 Dose: 500 mg Documented by: Furosemide (Furosemide 20 Mg Tablet) 20 mg PO BIDDIURETIC [facility] Last Admin: 03/02/21 13:53 Dose: 20 mg Documented by: Isosorbide Mononitrate (Isosorbide Mononitrate Er 30 Mg Tablet) 30 mg PO DAILY [facility] Last Admin: 03/02/21 08:18 Dose: 30 mg Documented by: Losartan Potassium (Losartan 50 Mg Tablet) 50 mg PO DAILY [facility] Last Admin: 03/02/21 08:18 Dose: 50 mg Documented by: Nitroglycerin (Nitroglycerin Sl 0.4 Mg Tablet) 0.4 mg SL .FREQ PRN PRN Reason: Chest Pain Ondansetron HCl (Ondansetron 4 Mg/2 Ml Vial) 4 mg IVP Q6HR PRN PRN Reason: Nausea / Vomiting Sodium Chloride (Sodium Chloride Flush 0.9% 10 Ml Syringe) 10 ml IVP PRN PRN PRN Reason: NEEDED PER PROVIDER ORDERS Sodium Chloride (Sodium Chloride Flush 0.9% 10 Ml Syringe) 10 ml IVP 0100,0900,1700 [facility] Last Admin: 03/02/21 08:18 Dose: 10 ml Documented by: Tamoxifen Citrate (Tamoxifen 10 Mg Tablet) 20 mg PO DAILY [facility] Last Admin: 03/02/21 08:20 Dose: Not Given Documented by: atenoloL [Tenormin] 75 mg PO DAILY 11/11/13 Atorvastatin Calcium 80 mg ORAL QPM 09/03/17 Losartan Potassium 100 mg PO DAILY 09/03/17 Nitroglycerin [Nitrostat] 0.4 mg PO PRN PRN 09/03/17 Benzonatate 100 mg PO TID 01/19/19 Budesonide 1 mg NEB Q6H PRN 01/19/19 Furosemide 20 mg PO BID 01/19/19 Albuterol Sulf [Ventolin Hfa Inhaler] 2 puffs INH Q4H PRN 03/02/21 Budesonide/Formoterol Fumarate [Symbicort 80-4.5 Mcg Inhaler] 2 puffs INH BID 03/02/21 Calcium Carbonate [Calcium Antacid] 750 mg PO DAILY 03/02/21 Citalopram [CeleXA] 10 mg PO DAILY 03/02/21 Ipratropium/Albuterol [Duoneb] 1 inh NEB QID PRN 03/02/21 Tamoxifen [Nolvadex] 20 mg PO DAILY 03/02/21 Objective - Vital Signs/Intake & Output Reviewed Vital Signs: Yes Vital Signs: Vital Signs x48h Temp Pulse Pulse Resp BP Pulse Ox 03/02/21 13:00 37 C 72 17 133/59 H 96 03/02/21 08:22 36.5 C 76 16 160/79 H 98 03/02/21 08:03 74 16 Intake & Output: Intake & Output 02/27/21 02/28/21 03/01/21 03/02/21 23:59 23:59 23:59 23:59 Intake Total 360 Balance 360 - Objective General Appearance: positive: No acute distress, Alert Eyes Bilateral: positive: Normal inspection, Conjunctivae nml ENT: positive: ENT inspection nml Neck: positive: Nml inspection Respiratory: positive: No respiratory distress. negative: Wheezes, Rales Cardiovascular: positive: Systolic murmur. negative: Irregularly irregular, Tachycardia Abdomen: positive: Non-tender, No distention. negative: Tenderness Skin: positive: Warm, Dry Extremities: positive: Full ROM, No pedal edema Neurologic/Psychiatric: negative: Disoriented to person, Disoriented to place - Lab Results Fish Bones: 03/02/21 04:50 03/02/21 04:50 Other Labs: Lab Results x24hrs 03/02/21 03/02/21 03/02/21 Range/Units 04:50 04:50 04:50 WBC 11.0 H (4.8-10.8) x10^3/uL RBC 3.91 L (4.20-5.40) 10^6/uL Hgb 11.5 L (12.0-16.0) g/dL Hct 35.9 L (37.0-47.0) % MCV 91.8 (81.0-99.0) fL MCH 29.4 (27.0-31.0) pg MCHC 32.0 (32.0-36.0) g/dL RDW 12.6 (12.0-15.0) % Plt Count 248 (130-450) 10^3/uL MPV 10.0 (7.9-10.8) fL Neut # (Auto) 6.2 (1.5-6.6) 10^3/uL Lymph # (Auto) 3.7 H (1.5-3.5) 10^3/uL Dewitt # (Auto) 0.8 (0.0-1.0) 10^3/uL Eos # (Auto) 0.2 (0.0-0.7) 10^3/uL Baso # (Auto) 0.0 (0.0-0.1) 10^3/uL Absolute Nucleated RBC 0.00 x10^3/uL Nucleated RBC % 0.0 /100WBC PT (9.9-12.6) secs INR (0.8-1.2) Sodium 139 (135-145) mmol/L Potassium 3.7 (3.5-5.0) mmol/L Chloride 104 (101-111) mmol/L Carbon Dioxide 25 (21-32) mmol/L Anion Gap 10.0 (6-13) BUN 16 (6-20) mg/dL Creatinine 0.9 (0.4-1.0) mg/dL Estimated GFR (MDRD) 61 L (>89) Glucose 114 H (70-100) mg/dL Calcium 9.2 (8.5-10.3) mg/dL Magnesium 2.1 (1.7-2.8) mg/dL Total Bilirubin (0.2-1.0) mg/dL AST (10-42) IU/L ALT (10-60) IU/L Alkaline Phosphatase (42-121) IU/L Troponin I High Sens 11.5 (2.3-14.8) ng/L Total Protein (6.7-8.2) g/dL Albumin (3.2-5.5) g/dL Globulin (2.1-4.2) g/dL Albumin/Globulin Ratio (1.0-2.2) Lipase (22-51) U/L Nasal Adenovirus (PCR) Nasal B. parapertussis DNA (PCR) Nasal Coronavir 229E PCR Nasal Coronavir HKU1 PCR Nasal Coronavir NL63 PCR Nasal Coronavir OC43 PCR Nasal Enterovir/Rhinovir PCR Nasal Influenza B PCR Nasal Influenza A PCR Nasal Parainfluen 1 PCR Nasal Parainfluen 2 PCR Nasal Parainfluen 3 PCR Nasal Parainfluen 4 PCR Nasal RSV (PCR) Nasal B.pertussis DNA PCR Nasal C.pneumoniae (PCR) Miguel Human Metapneumo PCR Nasal M.pneumoniae (PCR) Nasal SARS-CoV-2 (PCR) 03/01/21 03/01/21 03/01/21 Range/Units 21:25 21:25 20:42 WBC (4.8-10.8) x10^3/uL RBC (4.20-5.40) 10^6/uL Hgb (12.0-16.0) g/dL Hct (37.0-47.0) % MCV (81.0-99.0) fL MCH (27.0-31.0) pg MCHC (32.0-36.0) g/dL RDW (12.0-15.0) % Plt Count (130-450) 10^3/uL MPV (7.9-10.8) fL Neut # (Auto) (1.5-6.6) 10^3/uL Lymph # (Auto) (1.5-3.5) 10^3/uL Dewitt # (Auto) (0.0-1.0) 10^3/uL Eos # (Auto) (0.0-0.7) 10^3/uL Baso # (Auto) (0.0-0.1) 10^3/uL Absolute Nucleated RBC x10^3/uL Nucleated RBC % /100WBC PT 12.6 (9.9-12.6) secs INR 1.1 (0.8-1.2) Sodium (135-145) mmol/L Potassium (3.5-5.0) mmol/L Chloride (101-111) mmol/L Carbon Dioxide (21-32) mmol/L Anion Gap (6-13) BUN (6-20) mg/dL Creatinine (0.4-1.0) mg/dL Estimated GFR (MDRD) (>89) Glucose (70-100) mg/dL Calcium (8.5-10.3) mg/dL Magnesium (1.7-2.8) mg/dL Total Bilirubin (0.2-1.0) mg/dL AST (10-42) IU/L ALT (10-60) IU/L Alkaline Phosphatase (42-121) IU/L Troponin I High Sens 11.8 (2.3-14.8) ng/L Total Protein (6.7-8.2) g/dL Albumin (3.2-5.5) g/dL Globulin (2.1-4.2) g/dL Albumin/Globulin Ratio (1.0-2.2) Lipase (22-51) U/L Nasal Adenovirus (PCR) NOT DETECTED Nasal B. parapertussis DNA (PCR) NOT DETECTED Nasal Coronavir 229E PCR NOT DETECTED Nasal Coronavir HKU1 PCR NOT DETECTED Nasal Coronavir NL63 PCR NOT DETECTED Nasal Coronavir OC43 PCR NOT DETECTED Nasal Enterovir/Rhinovir PCR NOT DETECTED Nasal Influenza B PCR NOT DETECTED Nasal Influenza A PCR NOT DETECTED Nasal Parainfluen 1 PCR NOT DETECTED Nasal Parainfluen 2 PCR NOT DETECTED Nasal Parainfluen 3 PCR NOT DETECTED Nasal Parainfluen 4 PCR NOT DETECTED Nasal RSV (PCR) NOT DETECTED Nasal B.pertussis DNA PCR NOT DETECTED Nasal C.pneumoniae (PCR) NOT DETECTED Miguel Human Metapneumo PCR NOT DETECTED Nasal M.pneumoniae (PCR) NOT DETECTED Nasal SARS-CoV-2 (PCR) NOT DETECTED 03/01/21 03/01/21 03/01/21 Range/Units 19:08 19:08 19:08 WBC 11.6 H (4.8-10.8) x10^3/uL RBC 4.15 L (4.20-5.40) 10^6/uL Hgb 12.5 (12.0-16.0) g/dL Hct 37.3 (37.0-47.0) % MCV 89.9 (81.0-99.0) fL MCH 30.1 (27.0-31.0) pg MCHC 33.5 (32.0-36.0) g/dL RDW 12.5 (12.0-15.0) % Plt Count 267 (130-450) 10^3/uL MPV 9.9 (7.9-10.8) fL Neut # (Auto) 6.2 (1.5-6.6) 10^3/uL Lymph # (Auto) 4.0 H (1.5-3.5) 10^3/uL Dewitt # (Auto) 1.0 (0.0-1.0) 10^3/uL Eos # (Auto) 0.3 (0.0-0.7) 10^3/uL Baso # (Auto) 0.0 (0.0-0.1) 10^3/uL Absolute Nucleated RBC 0.00 x10^3/uL Nucleated RBC % 0.0 /100WBC PT (9.9-12.6) secs INR (0.8-1.2) Sodium 135 (135-145) mmol/L Potassium 4.0 (3.5-5.0) mmol/L Chloride 101 (101-111) mmol/L Carbon Dioxide 23 (21-32) mmol/L Anion Gap 11.0 (6-13) BUN 18 (6-20) mg/dL Creatinine 0.8 (0.4-1.0) mg/dL Estimated GFR (MDRD) 70 L (>89) Glucose 80 (70-100) mg/dL Calcium 9.1 (8.5-10.3) mg/dL Magnesium (1.7-2.8) mg/dL Total Bilirubin 0.3 (0.2-1.0) mg/dL AST 21 (10-42) IU/L ALT 18 (10-60) IU/L Alkaline Phosphatase 68 (42-121) IU/L Troponin I High Sens 9.6 (2.3-14.8) ng/L Total Protein 6.9 (6.7-8.2) g/dL Albumin 3.8 (3.2-5.5) g/dL Globulin 3.1 (2.1-4.2) g/dL Albumin/Globulin Ratio 1.2 (1.0-2.2) Lipase 32 (22-51) U/L Nasal Adenovirus (PCR) Nasal B. parapertussis DNA (PCR) Nasal Coronavir 229E PCR Nasal Coronavir HKU1 PCR Nasal Coronavir NL63 PCR Nasal Coronavir OC43 PCR Nasal Enterovir/Rhinovir PCR Nasal Influenza B PCR Nasal Influenza A PCR Nasal Parainfluen 1 PCR Nasal Parainfluen 2 PCR Nasal Parainfluen 3 PCR Nasal Parainfluen 4 PCR Nasal RSV (PCR) Nasal B.pertussis DNA PCR Nasal C.pneumoniae (PCR) Miguel Human Metapneumo PCR Nasal M.pneumoniae (PCR) Nasal SARS-CoV-2 (PCR) ABX Reporting Has patient been on IV antibiotics over the past 48 hours?: No Assessment/Plan - Problem List (1) Aortic stenosis Impression: The echocardiogram revealed severe aortic stenosis given her significantly elevated peak velocity and mean gradient. I did discuss the findings with her power project manager, Dr. Drummond, who recommended that the patient not be discharged home and that she should be transferred to a higher level of care for intervention on this valve given she is symptomatic. I did speak with [facility] who have no beds available at the moment. I have a call out to the [facility] and am awaiting to hear back from them regarding transfer. I did update the patient's son at her request and he is in agreement with the plan. Qualifiers: Cardiac valve disease etiology: nonrheumatic Qualified Code(s): I35.0 - Nonrheumatic aortic (valve) stenosis (2) Chest pain Impression: This is secondary to the aortic stenosis. Low suspicion for ACS at this time. Her EKG is nonischemic and her troponins have been negative. Qualifiers: Ischemic chest pain type: unspecified angina pectoris type Qualified Code(s ): R07.82 - Intercostal pain (3) HTN (hypertension) Impression: Her blood pressure is stable with systolic in the 130s. We will continue the reduced dose of atenolol and losartan and continue the Imdur. (4) Hx of coronary artery disease Impression: Stable. Continue aspirin, statin, atenolol. (5) GERD (gastroesophageal reflux disease) Impression: We will continue with Tums.
[2021-03-02] MEDS: NITROFURANTOIN MACRO 100 MG CAPSULE PO SCH (20:06)
[2021-03-03] MEDS: SODIUM CHLORIDE FLUSH 0.9% 10 ML SYRINGE IVP SCH ×4 (00:11→23:53)
[2021-03-03] MEDS: ACETAMINOPHEN 325 MG TABLET PO PRN ×2 (00:11→07:47)
[2021-03-03] MEDS: FUROSEMIDE 20 MG TABLET PO SCH ×2 (05:50→14:41)
[2021-03-03] MEDS: NITROGLYCERIN SL 0.4 MG TABLET SL PRN (06:45)
[2021-03-03 07:42] LABS: BASOPHILS % (AUTO) 0.4 %; EOSINOPHILS # (AUTO) 0.2 10^3/uL (0.0-0.7); EOSINOPHILS % (AUTO) 2.8 %; HGB - HEMOGLOBIN 11.9 g/dL (12.0-16.0); LYMPHOCYTES # (AUTO) 2.8 10^3/uL (1.5-3.5); LYMPHOCYTES % (AUTO) 36.7 %; MEAN CORPUSCULAR HEMOGLOBIN 30.1 pg (27.0-31.0); MEAN CORPUSCULAR HGB CONC 33.1 g/dL (32.0-36.0); MEAN CORPUSCULAR VOLUME 91.1 fL (81.0-99.0); MEAN PLATELET VOLUME 9.9 fL (7.9-10.8); MONOCYTES # (AUTO) 0.6 10^3/uL (0.0-1.0); MONOCYTES % (AUTO) 7.7 %; NEUTROPHILS # (AUTO) 3.9 10^3/uL (1.5-6.6); NEUTROPHILS % (AUTO) 52.1 %; PLT - PLATELET COUNT 245 10^3/uL (130-450); RED BLOOD COUNT 3.95 10^6/uL (4.20-5.40); RED CELL DISTRIBUTION WIDTH 12.5 % (12.0-15.0); WHITE BLOOD COUNT 7.5 x10^3/uL (4.8-10.8)
[2021-03-03] MEDS ORDERED: MAGNESIUM HYDROXIDE 2,400 MG/30 ML UDC PO PRN (08:00)
[2021-03-03] MEDS: BUDESONIDE 0.5 MG/2 ML NEB INH SCH ×2 (08:28→20:05)
[2021-03-03] MEDS: TAMOXIFEN 10 MG TABLET PO SCH (08:54)
[2021-03-03] MEDS: NITROFURANTOIN MACRO 100 MG CAPSULE PO SCH (08:55)
[2021-03-03] MEDS: ISOSORBIDE MONONITRATE ER 30 MG TABLET PO SCH (08:55)
[2021-03-03] MEDS: atenoloL 25 MG TABLET PO SCH (08:55)
[2021-03-03] MEDS: LOSARTAN 50 MG TABLET PO SCH (08:55)
[2021-03-03] MEDS: ASPIRIN EC 81 MG TABLET PO SCH (08:56)
[2021-03-03] MEDS: CALCIUM CARBONATE CHEW 500 MG TABLET PO PRN ×2 (09:00→23:58)
--- NOTE | 2021-03-03 17:22 | PROVIDER PROGRESS NOTE ---
Subjective - Prog Note Date Prog Note Date: 03/03/21 - Subjective Subjective: He had a lipid of chest pain this morning which resolved on its own. Currently denies any chest pain. Reports no dyspnea. She is eager to be transferred soon as possible so she can proceed with intervention for her valve as her goal is to go home as quickly as possible. Current Medications - Current Medications Current Medications: Active Medications Acetaminophen (Acetaminophen 325 Mg Tablet) 650 mg PO Q4HR PRN PRN Reason: Pain 1 to 4 Last Admin: 03/03/21 07:47 Dose: 650 mg Documented by: Albuterol (Albuterol Neb 2.5 Mg/3 Ml) 2.5 mg INH RTQ4H PRN PRN Reason: Wheezing Last Admin: 03/02/21 00:32 Dose: 2.5 mg Documented by: Aspirin (Aspirin Ec 81 Mg Tablet) 81 mg PO DAILY [facility] Last Admin: 03/03/21 08:56 Dose: 81 mg Documented by: Atenolol (Atenolol 25 Mg Tablet) 25 mg PO DAILY [facility] Last Admin: 03/03/21 08:55 Dose: 25 mg Documented by: Budesonide (Budesonide 0.5 Mg/2 Ml Neb) 0.5 mg INH RTBID [facility] Last Admin: 03/03/21 08:28 Dose: 0.5 mg Documented by: Calcium Carbonate/Glycine (Calcium Carbonate Chew 500 Mg Tablet) 500 mg PO TID PRN PRN Reason: Heartburn Last Admin: 03/03/21 09:00 Dose: 500 mg Documented by: Furosemide (Furosemide 20 Mg Tablet) 20 mg PO BIDDIURETIC [facility] Last Admin: 03/03/21 14:41 Dose: 20 mg Documented by: Isosorbide Mononitrate (Isosorbide Mononitrate Er 30 Mg Tablet) 30 mg PO DAILY [facility] Last Admin: 03/03/21 08:55 Dose: 30 mg Documented by: Losartan Potassium (Losartan 50 Mg Tablet) 100 mg PO DAILY [facility] Last Admin: 03/03/21 08:55 Dose: 100 mg Documented by: Nitroglycerin (Nitroglycerin Sl 0.4 Mg Tablet) 0.4 mg SL .FREQ PRN PRN Reason: Chest Pain Last Admin: 03/03/21 06:45 Dose: 0.4 mg Documented by: Ondansetron HCl (Ondansetron 4 Mg/2 Ml Vial) 4 mg IVP Q6HR PRN PRN Reason: Nausea / Vomiting Sodium Chloride (Sodium Chloride Flush 0.9% 10 Ml Syringe) 10 ml IVP PRN PRN PRN Reason: NEEDED PER PROVIDER ORDERS Sodium Chloride (Sodium Chloride Flush 0.9% 10 Ml Syringe) 10 ml IVP 0100,0900,1700 [facility] Last Admin: 03/03/21 16:57 Dose: 10 ml Documented by: Tamoxifen Citrate (Tamoxifen 10 Mg Tablet) 20 mg PO DAILY [facility] Last Admin: 03/03/21 08:54 Dose: Not Given Documented by: atenoloL [Tenormin] 75 mg PO DAILY 11/11/13 Atorvastatin Calcium 80 mg ORAL QPM 09/03/17 Losartan Potassium 100 mg PO DAILY 09/03/17 Nitroglycerin [Nitrostat] 0.4 mg PO PRN PRN 09/03/17 Benzonatate 100 mg PO TID 01/19/19 Budesonide 1 mg NEB Q6H PRN 01/19/19 Furosemide 20 mg PO BID 01/19/19 Albuterol Sulf [Ventolin Hfa Inhaler] 2 puffs INH Q4H PRN 03/02/21 Budesonide/Formoterol Fumarate [Symbicort 80-4.5 Mcg Inhaler] 2 puffs INH BID 03/02/21 Calcium Carbonate [Calcium Antacid] 750 mg PO DAILY 03/02/21 Citalopram [CeleXA] 10 mg PO DAILY 03/02/21 Ipratropium/Albuterol [Duoneb] 1 inh NEB QID PRN 03/02/21 Tamoxifen [Nolvadex] 20 mg PO DAILY 03/02/21 Objective - Vital Signs/Intake & Output Reviewed Vital Signs: Yes Vital Signs: Vital Signs x48h Temp Pulse Resp BP Pulse Ox 03/03/21 15:51 36.6 C 71 16 137/62 H 96 03/03/21 14:42 72 136/63 H 03/03/21 11:38 36.5 C 74 19 132/69 H 94 Intake & Output: Intake & Output 02/28/21 03/01/21 03/02/21 03/03/21 23:59 23:59 23:59 23:59 Intake Total 900 610 Output Total 50 Balance 900 560 - Objective General Appearance: positive: No acute distress, Alert Eyes Bilateral: positive: Normal inspection, Conjunctivae nml ENT: positive: ENT inspection nml Neck: positive: Nml inspection Respiratory: positive: No respiratory distress. negative: Wheezes, Rales Cardiovascular: positive: Systolic murmur. negative: Irregularly irregular, Tachycardia, Bradycardia Abdomen: positive: Non-tender, No distention. negative: Tenderness Skin: positive: Warm, Dry Extremities: positive: No pedal edema Neurologic/Psychiatric: negative: Disoriented to person, Disoriented to place - Lab Results Fish Bones: 03/03/21 07:30 03/02/21 04:50 Other Labs: Lab Results x24hrs 03/03/21 03/03/21 Range/Units 07:30 07:30 WBC 7.5 (4.8-10.8) x10^3/uL RBC 3.95 L (4.20-5.40) 10^6/uL Hgb 11.9 L (12.0-16.0) g/dL Hct 36.0 L (37.0-47.0) % MCV 91.1 (81.0-99.0) fL MCH 30.1 (27.0-31.0) pg MCHC 33.1 (32.0-36.0) g/dL RDW 12.5 (12.0-15.0) % Plt Count 245 (130-450) 10^3/uL MPV 9.9 (7.9-10.8) fL Neut # (Auto) 3.9 (1.5-6.6) 10^3/uL Lymph # (Auto) 2.8 (1.5-3.5) 10^3/uL Lassen # (Auto) 0.6 (0.0-1.0) 10^3/uL Eos # (Auto) 0.2 (0.0-0.7) 10^3/uL Baso # (Auto) 0.0 (0.0-0.1) 10^3/uL Absolute Nucleated RBC 0.00 x10^3/uL Nucleated RBC % 0.0 /100WBC Troponin I High Sens 11.4 (2.3-14.8) ng/L ABX Reporting Has patient been on IV antibiotics over the past 48 hours?: No Assessment/Plan - Problem List (1) Aortic stenosis Impression: Her echocardiogram revealed severe aortic stenosis. This was discussed with her child care giver yesterday who recommended transfer to high-level care for intervention. I did speak with the [facility] and cardiology has accepted her in transfer but unfortunate there are no beds available at the moment. I did call [facility] again this afternoon and they are still waiting for a bed to become available. In the interim, she will remain hospitalized here until she is transferred to the [facility]. Qualifiers: Cardiac valve disease etiology: nonrheumatic Qualified Code(s): I35.0 - Nonrheumatic aortic (valve) stenosis (2) Chest pain Impression: This is secondary to the aortic stenosis. She did have a brief episode this morning but this has since resolved. We will continue with Imdur and atenolol. Qualifiers: Ischemic chest pain type: unspecified angina pectoris type Qualified Code(s): R07.82 - Intercostal pain (3) HTN (hypertension) Impression: Her blood pressure has been elevated with systolic in the 150s. Atenolol and losartan were decreased due to the addition of Imdur. At this time we will increase her losartan back to her home dose of 100 mg daily. (4) Hx of coronary artery disease Impression: Stable. Continue home beta-tameka, aspirin, statin. (5) GERD (gastroesophageal reflux disease) Impression: Stable. Continue Tums as needed.
[2021-03-03] MEDS: ALBUTEROL NEB 2.5 MG/3 ML INH PRN (20:05)
[2021-03-04] MEDS: FUROSEMIDE 20 MG TABLET PO SCH ×2 (05:56→13:44)
[2021-03-04] MEDS: TAMOXIFEN 10 MG TABLET PO SCH (08:46)
[2021-03-04] MEDS: ACETAMINOPHEN 325 MG TABLET PO PRN (08:47)
[2021-03-04] MEDS: LOSARTAN 50 MG TABLET PO SCH (08:47)
[2021-03-04] MEDS: ASPIRIN EC 81 MG TABLET PO SCH (08:48)
[2021-03-04] MEDS: ISOSORBIDE MONONITRATE ER 30 MG TABLET PO SCH (08:48)
[2021-03-04] MEDS: SODIUM CHLORIDE FLUSH 0.9% 10 ML SYRINGE IVP SCH ×2 (08:48→16:04)
[2021-03-04] MEDS: atenoloL 25 MG TABLET PO SCH (08:48)
[2021-03-04] MEDS: ALBUTEROL NEB 2.5 MG/3 ML INH PRN (09:20)
[2021-03-04] MEDS: BUDESONIDE 0.5 MG/2 ML NEB INH SCH (09:22)
[2021-03-04] MEDS: CALCIUM CARBONATE CHEW 500 MG TABLET PO PRN (09:58)
[2021-03-04] MEDS: NITROGLYCERIN SL 0.4 MG TABLET SL PRN (11:00)
[2021-03-04] MEDS ORDERED: NITROGLYCERIN SL 0.4 MG TABLET SL PRN (12:39)
--- NOTE | 2021-03-04 15:11 | DISCHARGE SUMMARY ---
Discharge Summary Admit Date: 03/01/21 Discharge Date: 03/04/21 Discharging Provider: Tommy Gupta Primary Care Provider: Titi Amor Code Status: Attempt Resuscitation Condition at Discharge: Stable Discharge Disposition: 02 Transfer Acute Care Hosp Discharge Facility [facility]: [facility] - DIAGNOSES Admission Diagnoses: Chest pain Aortic stenosis History of coronary artery disease Renal artery stenosis Hypertension GERD COPD Discharge Diagnoses with Status of Each Condition: Severe aortic stenosis -ongoing. Chest pain - ongoing. Hypertension - stable. History of coronary artery disease - stable. GERD - stable. History of COPD - stable. - HPI History of Present Illness: H&P per Dr. Prieto: This is a 76-year-old white female with a history of CAD with stents, aortic stenosis, COPD, sleep apnea and obesity. Patient had an elective outpatient stress test done 2 weeks ago to evaluate shortness of breath. She had no chest pain with the exercise, achieved 84% predicted maximum heart rate on a treadmill but was exhausted. The Echo imaging portion showed no areas of wall motion abnormalities signifying no ischemia. Of note, there was no Doppler exam ordered with the echo and on inspection the aortic valve appeared to have moderate to severe aortic stenosis and a full Echo with Doppler was strongly advised in the report. The patient has occasional chest pain which usually responds to sublingual nitroglycerin quickly. Today she had a 45-minute episode of chest pain which is longer than usual and she did not take a sublingual nitroglycerin for it because she "thought it was going away each time she thought about taking nitro". She presented to the emergency room because of this prolonged episode of chest pain. In the ER she had a witnessed episode of chest pain at rest that was relieved promptly with 1 sublingual nitroglycerin. An EKG was done during the chest pain that showed no ischemic changes. The ER provider called her Biztalk Software Developer's (Dr Frias) covering doctor (Dr Layne), who advised that the patient be placed in Observation hat, undergo troponin labs and have a complete Echo. - CONSULTS | PROCEDURES Procedures: Echocardiogram on March 02 revealed moderate LVH with normal function, EF 75%. Mild diastolic dysfunction. Left atrium is mildly dilated. Calcified aortic valve with moderate to severe stenosis. The peak velocity is 4.7 m/s, the valve area index is 0.7 cm/m. LVOT velocities are increased as well. The DVI is 0.34. Peak/mean pressure gradient of 88 mmHg /57 mmHg. - HOSPITAL COURSE Hospital Course: She was admitted to the floor for chest pain. Her EKG did not suggest ischemia and troponins were trended which remained within normal limits. She did have a stress test 2 weeks ago and this was not repeated. She was started on Imdur 30 mg daily and her home losartan dose was decreased to 50 mg to prevent hypotension. There was concern for severe aortic stenosis as the cause of her chest pain and so she underwent an echocardiogram which confirmed that she does have severe aortic stenosis. She continued to have intermittent chest pain that would resolve with nitroglycerin and at times on its own. This was discussed with her lead software qa engineer, Dr. Drummond, who recommended that the patient not be discharged home and that she be transferred to a higher level of care for intervention given she is symptomatic and that she has severe aortic stenosis. I spoke with the [facility] and spoke with cardiology there who accepted the patient in transfer but unfortunately there were no beds available. She remained hospitalized here another 2 midnights until a bed became available today. During this time, she did have 2 episodes of chest pain. She was initially given nitroglycerin but this was discontinued later given she does have aortic stenosis. The second episode of chest pain resolved on its own after lasting about 5 to 10 minutes and happened the afternoon of discharge. I spoke with Dr. Armenta, the material preparation worker who graciously accepted the patient in transfer under the service of Dr. Humphrey. The patient and her family are agreeable to the plan and have been updated. Transferred via ALS. - ALLERGIES Allergies/Adverse Reactions: Allergies Allergy/AdvReac Type Severity Reaction Status Date / Time No Known Drug Allergies Allergy Verified 03/01/21 18:49 - MEDICATIONS Home Medications: Ambulatory Orders Medication Instructions Recorded Confirmed atenoloL [Tenormin] 75 mg PO DAILY 11/11/13 03/02/21 Atorvastatin Calcium 80 mg ORAL QPM 09/03/17 03/02/21 Losartan Potassium 100 mg PO DAILY 09/03/17 03/02/21 Nitroglycerin [Nitrostat] 0.4 mg PO PRN PRN 09/03/17 03/02/21 Benzonatate 100 mg PO TID 01/19/19 03/02/21 Budesonide 1 mg NEB Q6H PRN 01/19/19 03/02/21 Furosemide 20 mg PO BID 01/19/19 03/02/21 Albuterol Sulf [Ventolin Hfa 2 puffs INH Q4H PRN 03/02/21 03/02/21 Inhaler] Budesonide/Formoterol Fumarate 2 puffs INH BID 03/02/21 03/02/21 [Symbicort 80-4.5 Mcg Inhaler] Calcium Carbonate [Calcium Antacid] 750 mg PO DAILY 03/02/21 03/02/21 Citalopram [CeleXA] 10 mg PO DAILY 03/02/21 03/02/21 Ipratropium/Albuterol [Duoneb] 1 inh NEB QID PRN 03/02/21 03/02/21 Tamoxifen [Nolvadex] 20 mg PO DAILY 03/02/21 03/02/21 - PHYSICAL EXAM AT DISCHARGE General Appearance: positive: No acute distress, Alert Eyes Bilateral: positive: Normal inspection, Conjunctivae nml ENT: positive: ENT inspection nml Neck: positive: Nml inspection Respiratory: positive: No respiratory distress. negative: Wheezes, Rales Cardiovascular: positive: Regular rate & rhythm, Systolic murmur. negative: No murmur, Irregularly irregular, Tachycardia Abdomen: positive: Non-tender, No distention. negative: Tenderness Skin: positive: Warm, Dry Extremities: positive: Full ROM, No pedal edema Neurologic/Psychiatric: negative: Disoriented to person, Disoriented to place Physical Exam Other/Comments: Vital Signs - 8 hr 03/04/21 03/04/21 03/04/21 10:56 11:00 11:06 Temperature 36.4 C L Heart Rate 72 Heart Rate [ 72 73 Brachial] Respiratory 14 14 Rate Blood Pressure 146/76 H Blood Pressure 146/76 H 131/71 H [Right Brachial artery] O2 Saturation 95 95 03/04/21 16:12 Temperature 36.7 C Heart Rate Heart Rate [ 81 Brachial] Respiratory 18 Rate Blood Pressure Blood Pressure 104/53 L [Right Brachial artery] O2 Saturation 96 - LABS Result Diagrams: 03/03/21 07:30 03/02/21 04:50 - DIAGNOSTIC IMAGING Diagnostic Imaging Results: Final report reviewed - TIME SPENT Time Spent in Discharge (Minutes): 42
[2021-03-04 16:12] VITALS: BP 104/53
== END 2021-03-04 17:57 | disposition short-term general hospital (02) | DRG 307 ==
LOC: EDUNIT# → EDBD → SUATTDRO 18:40 → ED 18:40 → MS2 20:41 → OBSVTOIN 03-03 07:22
PROVIDERS: ADMIT Internal Medicine; ATTEND Internal Medicine
DX: I35.0 Nonrheumatic aortic (valve) stenosis (principal); N39.0 Urinary tract infection, site not specified; R07.82 Intercostal pain; I25.10 Atherosclerotic heart disease of native coronary artery without angina pectoris; I10 Essential (primary) hypertension; G47.30 Sleep apnea, unspecified; Z20.822 Contact with and (suspected) exposure to COVID-19; J44.9 Chronic obstructive pulmonary disease, unspecified; Z79.82 Long term (current) use of aspirin; E66.9 Obesity, unspecified; K21.9 Gastro-esophageal reflux disease without esophagitis; I70.1 Atherosclerosis of renal artery; Z79.899 Other long term (current) drug therapy; Z68.36 Body mass index [BMI] 36.0-36.9, adult; Z95.5 Presence of coronary angioplasty implant and graft
CPT/HCPCS: 36415; 71045; 80048; 80053; 83690; 83735; 84484; 85025; 85610; 87631; 93005; 93306; 94640; 99283; 99285; A9270; G0378; J7626; 0202U

== ENCOUNTER 2021-03-04 17:45 | Outpatient (CLI) | payer MEDICARE, OTHER | END 2021-03-04 17:46 | disposition short-term general hospital (02) | LOC: EMS 17:45 | PROVIDERS: ATTEND Internal Medicine | DX: I35.0 Nonrheumatic aortic (valve) stenosis (principal); R07.9 Chest pain, unspecified | CPT/HCPCS: A0425; A0426 ==

== ENCOUNTER 2022-12-12 14:05 | Outpatient (CLI) | payer MEDICARE, OTHER | END 2022-12-12 23:59 | disposition critical access hospital (66) | LOC: EMS 14:05 | DX: R53.1 Weakness (principal); R05.9 Cough, unspecified | CPT/HCPCS: A0425; A0429 ==

== ENCOUNTER 2022-12-12 14:46 | Emergency (ER) | payer MEDICARE, OTHER ==
[2022-12-12 15:19] LABS: BASOPHILS % (AUTO) 0.2 %; EOSINOPHILS # (AUTO) 0.1 10^3/uL (0.0-0.7); EOSINOPHILS % (AUTO) 1.3 %; HCT - HEMATOCRIT 36.5 % (37.0-47.0); LYMPHOCYTES # (AUTO) 1.9 10^3/uL (1.5-3.5); LYMPHOCYTES % (AUTO) 20.7 %; MEAN CORPUSCULAR HEMOGLOBIN 30.1 pg (27.0-31.0); MEAN CORPUSCULAR HGB CONC 32.9 g/dL (32.0-36.0); MEAN CORPUSCULAR VOLUME 91.5 fL (81.0-99.0); MEAN PLATELET VOLUME 9.3 fL (7.9-10.8); NEUTROPHILS # (AUTO) 6.2 10^3/uL (1.5-6.6); NEUTROPHILS % (AUTO) 66.4 %; PLT - PLATELET COUNT 262 10^3/uL (130-450); RED BLOOD COUNT 3.99 10^6/uL (4.20-5.40); RED CELL DISTRIBUTION WIDTH 12.9 % (12.0-15.0); WHITE BLOOD COUNT 9.3 x10^3/uL (4.8-10.8)
--- NOTE | 2022-12-12 15:24 | XRAY Report ---
PROCEDURE: Chest 1 View X-Ray INDICATIONS: cough, +covid TECHNIQUE: One view of the chest was acquired. COMPARISON: None. FINDINGS: Surgical changes and devices: None. Lungs and pleura: No pleural effusions or pneumothorax. Mild bronchial wall thickening is seen. No f ocal infiltrate. Mediastinum: Mediastinal contours appear normal. Heart size is enlarged. Bones and chest wall: No suspicious bony lesions. Overlying soft tissues appear unremarkable. IMPRESSION: Impression of mild reactive airway disease such as bronchitis or viral illness. No focal infiltrate, pleural effusion or pneumothorax. Reviewed by: Layo Romano MD on 12/12/2022 2:22 PM AKDT Approved by: Layo Romano MD on 12/12/2022 2:22 PM AKDT Station ID: [id number]
[2022-12-12 15:32] LABS: ALBUMIN 3.5 g/dL (3.2-5.5); BILIRUBIN,TOTAL 0.3 mg/dL (0.2-1.0); CALCIUM 8.6 mg/dL (8.5-10.3); CREATININE 0.8 mg/dL (0.4-1.0); POTASSIUM 3.5 mmol/L (3.5-5.0); TOTAL PROTEIN 6.9 g/dL (6.7-8.2)
[2022-12-12] MEDS ORDERED: IPRATROPIUM/ALBUTEROL 3 ML NEB INH STA (15:38)
--- NOTE | 2022-12-12 15:39 | ED Physician Documentation ---
History of Present Illness - Stated complaint Stated Complaint: WEAKNESS,COUGH,SOA - Chief complaint Chief Complaint: Resp - Additonal information Additional information: 77-year-old female presents to the emergency department for evaluation of dyspnea and persistent cough. Reports that she tested positive a little more than a week ago and she did complete a 5-day course of Paxlovid. However she continues to have a cough and is exceedingly dyspneic and short of air. No lower leg swelling. She does have a history of COPD as well as congestive heart failure and known aortic stenosis. She does not use oxygen at home. Patient has a very productive coughing spasms which will leave her gasping for air. She denies chest pain. On presentation she is alert though elderly appearing. Room air sats are 95%. Review of Systems Constitutional: reports: Fatigue. denies: Fever, Chills Throat: reports: Oral lesions / sores Cardiac: denies: Chest pain / pressure, Palpitations Respiratory: reports: Dyspnea, Cough, Wheezing. 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 : None HEENT: Chronic vision loss, Chronic hearing loss Psych: Anxiety, Panic attacks Musculoskeletal: Osteoarthritis, Fibromyalgia, Chronic back pain Derm: None - Past Surgical History Past Surgical History: Yes General: Appendectomy Ortho: Other /SLEEVE BOTTOM FELLER: Hysterectomy Cardiovascular: Coronary stent HEENT: Other - Present Medications Home Medications: Ambulatory Orders Medication Instructions Recorded Confirmed atenoloL [Tenormin] 75 mg PO DAILY 11/11/13 03/02/21 Atorvastatin Calcium 80 mg ORAL QPM 09/03/17 03/02/21 Losartan Potassium 100 mg PO DAILY 09/03/17 03/02/21 Nitroglycerin [Nitrostat] 0.4 mg PO PRN PRN 09/03/17 03/02/21 Benzonatate 100 mg PO TID 01/19/19 03/02/21 Budesonide 1 mg NEB Q6H PRN 01/19/19 03/02/21 Furosemide 20 mg PO BID 01/19/19 03/02/21 Albuterol Sulf [Ventolin Hfa 2 puffs INH Q4H PRN 03/02/21 03/02/21 Inhaler] Budesonide/Formoterol Fumarate 2 puffs INH BID 03/02/21 03/02/21 [Symbicort 80-4.5 Mcg Inhaler] Calcium Carbonate [Calcium Antacid] 750 mg PO DAILY 03/02/21 03/02/21 Citalopram [CeleXA] 10 mg PO DAILY 03/02/21 03/02/21 Ipratropium/Albuterol [Duoneb] 1 inh NEB QID PRN 03/02/21 03/02/21 Tamoxifen [Nolvadex] 20 mg PO DAILY 03/02/21 03/02/21 Benzonatate [Tessalon] 200 mg PO TID PRN #20 cap 12/12/22 Cefpodoxime Proxetil [Vantin] 100 mg PO Q12H #14 tablet 12/12/22 - Allergies Allergies/Adverse Reactions: Allergies Allergy/AdvReac Type Severity Reaction Status Date / Time No Known Drug Allergies Allergy Verified 12/12/22 14:54 - Social History Does the pt smoke?: No Smoking Status: Never smoker Does the pt drink ETOH?: No Does the pt have substance abuse?: No - Immunizations Immunizations are current?: Yes - POLST Patient has POLST: No POLST Status: Full Code PD ED PE NORMAL - General General: Alert and oriented X 3, No acute distress. No: Well developed/nourished (Obese geriatric appearance) - HEENT HEENT: Atraumatic, Other (Cold sores on lower lip). No: Moist mucous membranes (Dry) - Neck Neck: Supple, no meningeal sign, No adenopathy - Cardiac Cardiac: RRR. No: No murmur (3/6 systolic murmur) - Respiratory Respiratory: No respiratory distress, Clear bilaterally - Abdomen Abdomen: Normal bowel sounds, Soft, Non tender - Derm Derm: Normal color, Warm and dry, No rash - Extremities Extremities: No deformity, No tenderness to palpate, Normal ROM s pain - Neuro Neuro: Alert and oriented X 3, rn medical inpatient services 2-12 intact Eye Opening: Spontaneous Motor: Obeys Commands Verbal: Oriented GCS Score: 15 Results - Vitals Vitals: Vital Signs - 24 hr 12/12/22 12/12/22 14:52 17:00 Temperature 36.3 C L Heart Rate 94 91 Respiratory 12 14 Rate Blood Pressure 162/87 H 137/70 H O2 Saturation 95 97 Oxygen O2 Source Room air - Labs Labs: Laboratory Tests 12/12/22 12/12/22 12/12/22 15:16 15:16 15:50 WBC 9.3 RBC 3.99 L Hgb 12.0 Hct 36.5 L MCV 91.5 MCH 30.1 MCHC 32.9 RDW 12.9 Plt Count 262 MPV 9.3 Neut # (Auto) 6.2 Lymph # (Auto) 1.9 [place] # (Auto) 1.0 Eos # (Auto) 0.1 Baso # (Auto) 0.0 Absolute Nucleated RBC 0.00 Nucleated RBC % 0.0 Sodium 136 Potassium 3.5 Chloride 103 Carbon Dioxide 26 Anion Gap 7.0 BUN 10 Creatinine 0.8 Estimated GFR (MDRD) 69 L Glucose 101 H Calcium 8.6 Total Bilirubin 0.3 AST 20 ALT 23 Alkaline Phosphatase 63 Troponin I High Sens Total Protein 6.9 Albumin 3.5 Globulin 3.4 Albumin/Globulin Ratio 1.0 Urine Color YELLOW Urine Clarity CLEAR Urine pH 6.5 Ur Specific [place] 1.010 Urine Protein NEGATIVE Urine Glucose (UA) NEGATIVE Urine Ketones NEGATIVE Urine Occult Blood NEGATIVE Urine Nitrite NEGATIVE Urine Bilirubin NEGATIVE Urine Urobilinogen 0.2 (NORMAL) Ur Leukocyte Esterase MODERATE H Urine RBC 0-5 Urine WBC >25 H Ur Squamous Epith Cells RARE Squamous Urine Bacteria Many H Urine Mucus Few Strands Ur Microscopic Review INDICATED Urine Culture Comments INDICATED 12/12/22 16:38 WBC RBC Hgb Hct MCV MCH MCHC RDW Plt Count MPV Neut # (Auto) Lymph # (Auto) [place] # (Auto) Eos # (Auto) Baso # (Auto) Absolute Nucleated RBC Nucleated RBC % Sodium Potassium Chloride Carbon Dioxide Anion Gap BUN Creatinine Estimated GFR (MDRD) Glucose Calcium Total Bilirubin AST ALT Alkaline Phosphatase Troponin I High Sens 14.3 Total Protein Albumin Globulin Albumin/Globulin Ratio Urine Color Urine Clarity Urine pH Ur Specific [place] Urine Protein Urine Glucose (UA) Urine Ketones Urine Occult Blood Urine Nitrite Urine Bilirubin Urine Urobilinogen Ur Leukocyte Esterase Urine RBC Urine WBC Ur Squamous Epith Cells Urine Bacteria Urine Mucus Ur Microscopic Review Urine Culture Comments - Rads (name of study) cxr Relevant Findings:: Final report received (Impression mild reactive airway disease such as bronchitis or viral illness. No focal infiltrate, pleural effusion or pneumothorax.) PD Medical Decision Making - ED course Complexity details: reviewed results, considered differential, d/w patient ED course: 77-year-old female who has a history Of aortic stenosis, COPD and recent COVID- 19 infection comes to the emergency department with persistent cough and generalized weakness. No chest pain. No nausea or vomiting. She did complete an outpatient Paxlovid regimen. On presentation the emergency department she is alert and afebrile. Room air saturations are 96%. Cardiopulmonary auscultation was essentially unremarkable although she is noted to have a productive cough. A CBC and electrolytes per my interpretation showed no acute worrisome findings. A chest x-ray is interpreted by the radiologist also showed no findings to suggest a focal pneumonia or pleural effusions. Her urinalysis today per my interpretation does show acute cystitis which I believe is likely contributing to her persistent weakness. She will be started on Vantin twice daily for the next week. Prescription for Tessalon Perles has also been sent to the pharmacy to help with the cough. Clinically the patient does not present as septic and no indication for inpatient hospitalization. She is discharged home in stable condition with usual routine emergent return precautions discussed Departure - Departure Disposition: 01 Home, Self Care Clinical Impression: General weakness, History of COPD Urinary tract infection Qualifiers: Urinary tract infection type: acute cystitis Hematuria presence: without hematuria Qualified Code(s): N30.00 - Acute cystitis without hematuria Condition: Stable Record reviewed to determine appropriate education?: Yes Prescriptions: Benzonatate [Tessalon] 200 mg PO TID PRN #20 cap PRN Reason: Cough Cefpodoxime Proxetil [Vantin] 100 mg PO Q12H #14 tablet Comments: Melody you are seen today in the emergency department for persistent cough after recent COVID-19 infection and completing the outpatient medications. You have been feeling weak and unwell. Your labs today show that you do have a urinary tract infection. To treat this we will start you on a medication called Vantin. This has been sent to the [facility] in [place]. Your chest x-ray does not show signs of a pneumonia. Your lab work was otherwise essentially normal. I encourage you to stay well- hydrated and drink plenty of fluids. I have also ordered some Tessalon Perles to help with your cough. Continue to take your usual medications including your inhalers and nebulizer. Return to the ER if you are having worsening symptoms
[2022-12-12 16:02] LABS: BILIRUBIN,URINE NEGATIVE (NEGATIVE); GLUCOSE, URINE (UA) NEGATIVE (NEGATIVE); KETONES,URINE (UA) NEGATIVE (NEGATIVE); LEUKOCYTE ESTERASE, URINE MODERATE (NEGATIVE); NITRITE,URINE NEGATIVE (NEGATIVE); OCCULT BLOOD,URINE NEGATIVE (NEGATIVE); PH,URINE 6.5 PH (5.0-7.5); PROTEIN,URINE NEGATIVE (NEGATIVE); UROBILINOGEN,URINE 0.2 (NORMAL) E.U./dL (NORMAL)
[2022-12-12 16:06] LABS: CLARITY,URINE CLEAR (CLEAR)
[2022-12-12 16:28] LABS: BACTERIA,URINE Many /HPF (None Seen); MUCUS,URINE Few Strands; RBC,URINE 0-5 /HPF (0-5); SQUAMOUS EPITHELIAL CELL,UR RARE Squamous (<= Few); WBC,URINE >25 /HPF (0-5)
[2022-12-12] MEDS ORDERED: cefTRIAXone 1 GM VIAL IVP STA (16:48)
[2022-12-12 17:00] VITALS: BP 137/70
[2022-12-12] MEDS ORDERED: CEFPODOXIME PROXETIL 100 MG TABLET PO STA (17:05)
== END 2022-12-12 17:20 | disposition home or self-care (01) ==
LOC: EDUNIT# → EDBD → ED 14:46
DX: N30.00 Acute cystitis without hematuria (principal); J44.9 Chronic obstructive pulmonary disease, unspecified
CPT/HCPCS: 36415; 71045; 80053; 81001; 84484; 85025; 87077; 87086; 87181; 99283; 99284; A9270; 81003

== ENCOUNTER 2024-03-12 20:36 | Emergency (ER) | payer MEDICARE ==
--- NOTE | 2024-03-12 21:08 | ED Physician Documentation ---
PD HPI URI - Stated complaint Stated Complaint: CHEST TIGHT/COUGH/VOMIT - Chief complaint Chief Complaint: Resp - Additional information Additional information: 79-year-old female with history of hypertension, coronary artery disease, heart murmur, COPD osteoarthritis, fibromyalgia presents emergency department for flulike symptoms. Patient says that you tested positive for COVID at home today and presented to the emergency department for further evaluation given how rundown she is feeling. She denies any chest pain no shortness of breath but just feeling like " COVID is moving to my lungs" she also reports that she has been having a persistent headache she is taken Tylenol ibuprofen with little to no relief and unable to eat much or drink much because of the nausea that she has been experiencing. No unilateral calf pain or tenderness. 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 : None HEENT: Chronic vision loss, Chronic hearing loss Psych: Anxiety, Panic attacks Musculoskeletal: Osteoarthritis, Fibromyalgia, Chronic back pain Derm: None - Past Surgical History Past Surgical History: Yes General: Appendectomy Ortho: Other /COLD PRESS LOADER: Hysterectomy Cardiovascular: Coronary stent HEENT: Other - Present Medications Home Medications: Ambulatory Orders Medication Instructions Recorded Confirmed atenoloL [Tenormin] 75 mg PO DAILY 11/11/13 03/02/21 Atorvastatin Calcium 80 mg ORAL QPM 09/03/17 03/02/21 Losartan Potassium 100 mg PO DAILY 09/03/17 03/02/21 Nitroglycerin [Nitrostat] 0.4 mg PO PRN PRN 09/03/17 03/02/21 Benzonatate 100 mg PO TID 01/19/19 03/02/21 Budesonide 1 mg NEB Q6H PRN 01/19/19 03/02/21 Furosemide 20 mg PO BID 01/19/19 03/02/21 Albuterol Sulf [Ventolin Hfa 2 puffs INH Q4H PRN 03/02/21 03/02/21 Inhaler] Budesonide/Formoterol Fumarate 2 puffs INH BID 03/02/21 03/02/21 [Symbicort 80-4.5 Mcg Inhaler] Calcium Carbonate [Calcium Antacid] 750 mg PO DAILY 03/02/21 03/02/21 Citalopram [CeleXA] 10 mg PO DAILY 03/02/21 03/02/21 Ipratropium/Albuterol [Duoneb] 1 inh NEB QID PRN 03/02/21 03/02/21 Tamoxifen [Nolvadex] 20 mg PO DAILY 03/02/21 03/02/21 Benzonatate [Tessalon] 200 mg PO TID PRN #20 cap 12/12/22 Cefpodoxime Proxetil [Vantin] 100 mg PO Q12H #14 tablet 12/12/22 Ondansetron Odt [Zofran Odt] 4 mg TL Q6H PRN #10 tablet 03/12/24 predniSONE [Deltasone] 40 mg PO DAILY 5 Days #10 tablet 03/12/24 - Allergies Allergies/Adverse Reactions: Allergies Allergy/AdvReac Type Severity Reaction Status Date / Time No Known Drug Allergies Allergy Verified 03/12/24 20:45 - Social History Does the pt smoke?: No Smoking Status: Never smoker Does the pt drink ETOH?: No Does the pt have substance abuse?: No - Immunizations Immunizations are current?: Yes - POLST Patient has POLST: No POLST Status: Full Code PD ED PE NORMAL - Vitals Vital signs reviewed: Yes - General General: Alert and oriented X 3, No acute distress, Well developed/nourished, Other (Morbidly obese) - HEENT HEENT: Atraumatic, PERRL - Neck Neck: Supple, no meningeal sign - Cardiac Cardiac: RRR. No: No murmur - Respiratory Respiratory: No respiratory distress, Clear bilaterally - Abdomen Abdomen: Normal bowel sounds, Soft, Non tender, No organomegaly - Back Back: No CVA TTP - Derm Derm: Normal color, Warm and dry, No rash - Extremities Extremities: No edema, No calf tenderness / cord Results - Vitals Vitals: Vital Signs - 24 hr 03/12/24 03/12/24 03/12/24 20:39 21:45 22:00 Temperature 36.0 C L Heart Rate 93 67 98 Respiratory 16 17 24 Rate Blood Pressure 180/81 H 137/64 H O2 Saturation 98 95 03/12/24 22:39 Temperature 36 C L Heart Rate 74 Respiratory 16 Rate Blood Pressure 152/68 H O2 Saturation 95 Oxygen O2 Source Room air - Labs Labs: Laboratory Tests 03/12/24 03/12/24 03/12/24 21:19 21:19 21:19 WBC 8.7 RBC 4.19 L Hgb 12.1 Hct 37.4 MCV 89.3 MCH 28.9 MCHC 32.4 RDW 12.8 Plt Count 217 MPV 9.5 Neut # (Auto) 6.1 Lymph # (Auto) 1.6 [place] # (Auto) 0.9 Eos # (Auto) 0.0 Baso # (Auto) 0.0 Absolute Nucleated RBC 0.00 Nucleated RBC % 0.0 D-Dimer 269.2 H Sodium 132 L Potassium 3.5 Chloride 100 L Carbon Dioxide 23 Anion Gap 9.0 BUN 15 Creatinine 0.9 Estimated GFR (MDRD) 60 L Glucose 109 H Calcium 9.3 Magnesium 1.7 Total Bilirubin 0.3 AST 17 ALT 13 Alkaline Phosphatase 99 Troponin I High Sens Total Protein 6.8 Albumin 4.0 Globulin 2.8 Albumin/Globulin Ratio 1.4 Lipase 22 03/12/24 21:19 WBC RBC Hgb Hct MCV MCH MCHC RDW Plt Count MPV Neut # (Auto) Lymph # (Auto) [place] # (Auto) Eos # (Auto) Baso # (Auto) Absolute Nucleated RBC Nucleated RBC % D-Dimer Sodium Potassium Chloride Carbon Dioxide Anion Gap BUN Creatinine Estimated GFR (MDRD) Glucose Calcium Magnesium Total Bilirubin AST ALT Alkaline Phosphatase Troponin I High Sens 13.1 Total Protein Albumin Globulin Albumin/Globulin Ratio Lipase - Rads (name of study) Chest x-ray Relevant Findings:: Final report received, EMP independent interpretation of test, Other (No acute cardiopulmonary abnormalities) PD Medical Decision Making - ED course ED course: 79-year-old female presents emergency room for flulike symptoms. Given her comorbidities further evaluation was complete labs are complete no leukocytosis no anemia D-dimer is 269 which is age-adjusted appropriate for her age. Mild hyponatremia 132 she was given a liter of IV fluids. Patient was also given Toradol and methylprednisolone as she is worried that she may be experiencing a COPD exacerbation and this happens to help her in the past. After these interventions patient feels significantly better and says that she finally feels relief from her head pain for the first time in 3 days. Prescription of steroids was sent for patient for her COPD to her preferred pharmacy as well as some Zofran to help with any nausea that she is continuing to experience while she recovers from COVID. Given that the symptoms started 3 days ago she is outside of the window for Paxlovid she is not hypoxic and I believe any further workup is indicated at this time. Patient given very strict ER return precautions all questions answered safe for discharge at this time. Departure - Departure Disposition: 01 Home, Self Care Clinical Impression: COVID-19 Instructions: ED Viral Syndrome Prescriptions: predniSONE [Deltasone] 40 mg PO DAILY 5 Days #10 tablet Ondansetron Odt [Zofran Odt] 4 mg TL Q6H PRN #10 tablet PRN Reason: Nausea / Vomiting Comments: Thank you for trusting us with your care. I am so sorry that you are feeling so ill give this time and it should start to resolve soon. I have sent a prescription of prednisone the steroid that you had requested to [facility] as well as some Zofran and some antinausea medication to [facility]. Please come back to the ER if you are developing any worsening symptoms, get plenty rest drink plenty of fluids and eat a healthy well-balanced diet recover from COVID. Forms: PCP List Discharge Date/Time: 03/12/24 22:46
[2024-03-12 21:24] LABS: BASOPHILS % (AUTO) 0.2 %; EOSINOPHILS % (AUTO) 0.5 %; HCT - HEMATOCRIT 37.4 % (37.0-47.0); HGB - HEMOGLOBIN 12.1 g/dL (12.0-16.0); LYMPHOCYTES # (AUTO) 1.6 10^3/uL (1.5-3.5); LYMPHOCYTES % (AUTO) 18.6 %; MEAN CORPUSCULAR HEMOGLOBIN 28.9 pg (27.0-31.0); MEAN CORPUSCULAR HGB CONC 32.4 g/dL (32.0-36.0); MEAN CORPUSCULAR VOLUME 89.3 fL (81.0-99.0); MEAN PLATELET VOLUME 9.5 fL (7.9-10.8); MONOCYTES # (AUTO) 0.9 10^3/uL (0.0-1.0); MONOCYTES % (AUTO) 10.7 %; NEUTROPHILS # (AUTO) 6.1 10^3/uL (1.5-6.6); NEUTROPHILS % (AUTO) 69.8 %; PLT - PLATELET COUNT 217 10^3/uL (130-450); RED BLOOD COUNT 4.19 10^6/uL (4.20-5.40); RED CELL DISTRIBUTION WIDTH 12.8 % (12.0-15.0); WHITE BLOOD COUNT 8.7 x10^3/uL (4.8-10.8)
[2024-03-12] MEDS: SODIUM CHLORIDE 0.9% 1,000 ML IV ONE (21:35)
[2024-03-12] MEDS: methylPREDNISolone SUCCINATE 125 MG/2 ML VIAL IVP STA (21:37)
[2024-03-12] MEDS: KETOROLAC 30 MG/ML VIAL IVP STA (21:43)
[2024-03-12 21:47] VITALS: O2SAT 95
[2024-03-12 21:47] LABS: ALBUMIN/GLOBULIN RATIO 1.4 (1.0-2.2); BILIRUBIN,TOTAL 0.3 mg/dL (0.2-1.0); CALCIUM 9.3 mg/dL (8.5-10.3); CREATININE 0.9 mg/dL (0.6-1.3); MAGNESIUM 1.7 mg/dL (1.7-2.3); POTASSIUM 3.5 mmol/L (3.5-4.5); TOTAL PROTEIN 6.8 g/dL (6.4-8.9)
[2024-03-12] MEDS: IPRATROPIUM/ALBUTEROL 3 ML NEB INH STA (22:00)
[2024-03-12 22:44] VITALS: BP 152/68
--- NOTE | 2024-03-12 22:46 | XRAY Report ---
PROCEDURE: Chest 2V INDICATIONS: SOA TECHNIQUE: 2 views of the chest were acquired. COMPARISON: 12/22/2022 FINDINGS: Surgical changes and devices: Valvular prosthesis redemonstrated. Lungs and pleura: No pleural effusions or pneumothorax. Lungs are clear. Mediastinum: Mediastinal contours appear normal. Heart size is normal. Bones and chest wall: No suspicious bony lesions. Overlying soft tissues appear unremarkable. IMPRESSION: No acute cardiopulmonary process. Reviewed by: Reza Porter MD on 03/12/2024 10:45 PM PDT Approved by: Reza Porter MD on 03/12/2024 10:45 PM PDT Station ID: [id number]
== END 2024-03-12 22:46 | disposition home or self-care (01) ==
LOC: ED 20:36
DX: U07.1 COVID-19 (principal); E87.1 Hypo-osmolality and hyponatremia; J44.9 Chronic obstructive pulmonary disease, unspecified
CPT/HCPCS: 36415; 80053; 83690; 83735; 84484; 85025; 85379; 93005; 94640; 94664; 96374; 96375; 99284